=== PATIENT | female | born 1960 | race Caucasian/White ===

== ENCOUNTER → 2017-01-26 | Outpatient (CLI) | payer BC ==
--- NOTE | 2017-01-31 08:25 | MM ---
Reason for exam: screening (asymptomatic). Last mammogram was performed 1 year and 1 month ago. Physical Findings: A clinical breast exam by your physician is recommended on an annual basis and results should be correlated with mammographic findings. MG Screening Mammo w CAD Bilateral CC and MLO view(s) were taken. Prior study comparison: January 11, 2016, bilateral MG screening mammo w CAD. January 05, 2015, bilateral MG screening mammo w CAD. October 28, 2013, bilateral digital screening mammo w/CAD. There are scattered fibroglandular densities. No significant changes when compared with prior studies. ASSESSMENT: Negative, BI-RAD 1 RECOMMENDATION: Routine screening mammogram of both breasts in 1 year.
== END | disposition home or self-care (01) ==
LOC: RADMAMWWP 07:45
PROVIDERS: ATTEND Obstetrics & Gynecology
DX: Z12.31 Encounter for screening mammogram for malignant neoplasm of breast (principal)

== ENCOUNTER 2017-04-27 00:41 | Inpatient (IN) | payer BC ==
[2017-04-27] MEDS ORDERED: MORPHINE SULFATE 4 MG/ML SYRINGE IV STA (01:24)
[2017-04-27] MEDS ORDERED: ONDANSETRON 4 MG/2 ML VIAL IVP STA ×2 (01:24→04:16)
[2017-04-27] MEDS ORDERED: SODIUM CHLORIDE 0.9% 500 ML IV ONE ×2 (01:24→15:32)
[2017-04-27] MEDS ORDERED: KETOROLAC 30 MG/ML 1 ML VIAL IVP STA (01:54)
[2017-04-27 02:08] LABS: Basophils # (A) 0.1 k/uL (0-0.2); Basophils % (A) 0 %; CH 29.6; CHCM 34.4; Eosinophils # (A) 0.1 k/uL (0-0.7); Eosinophils % (A) 1 %; HCT 36.8 % (34.0-46.0); HDW 2.77; HGB 12.8 gm/dL (11.4-16.0); Luc % (Auto) 2; Lymphocytes # (A) 1.3 k/uL (1.0-4.8); Lymphocytes % (A) 10 %; MCHC 34.7 g/dL (31.0-37.0); MCV 86.3 fL (80.0-100.0); Mean Platelet Volume 7.3; Monocytes # (A) 0.5 k/uL (0-1.0); Monocytes % (A) 4 %; Neutrophils # (A) 11.3 k/uL (1.3-7.7); Neutrophils % (A) 84 %; RBC 4.26 m/uL (3.80-5.40); RDW 15.1 % (11.5-15.5); WBC 13.5 k/uL (3.8-10.6); WBC (Perox) 13.65
[2017-04-27 02:14] LABS: Appearance,Urine Cloudy (Clear); Bacteria,Urine Rare /hpf; Bilirubin,Urine Negative (Negative); Glucose,Urine (UA) Negative (Negative); Ketones,Urine Negative (Negative); Leukocyte Esterase,Urine Large (Negative); Mucus,Urine Few /hpf; Nitrite,Urine Negative (Negative); PH, Urine 5.5 (5.0-8.0); Particle Count 8922; Protein,Urine Trace (Negative); RBC,Urine 2 /hpf (0-5); Specific Gravity,Urine 1.023 (1.001-1.035); Squamous Epithelial Cell,Urine 5 /hpf (0-4); UA Billing (MACRO vs. MICRO) MICRO; Urobilinogen,Urine <2.0 mg/dL (<2.0); WBC,Urine 18 /hpf (0-5)
--- NOTE | 2017-04-27 02:15 | ED ---
General Adult HPI - General Chief complaint: Urogenital Stated complaint: Pelvic Pain Time Seen by Provider: 04/27/17 01:08 Source: patient Mode of arrival: ambulatory Limitations: no limitations - History of Present Illness Initial comments: 56-year-old female patient presented to emergency department today for complaints of left lower quadrant abdominal pain. Patient states this has been on for the last 2 days. Patient states the pain is sharp. She states it does not radiate to her back. Patient states that she has had some nausea related to the pain however has not vomited. She denies any fever, chills, chest pain, shortness of breath, constipation, diarrhea, dark stools, bloody stools, black stools, hematuria, dysuria, urinary frequency or urinary urgency. Patient states her last menstrual period was 2 weeks ago. Patient states that her periods have been irregular. States she does have a history of ovarian cyst however is unsure which side it was on. 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 - Related Data Home Medications Medication Instructions Recorded Confirmed Aspirin 81 mg PO DAILY 05/02/16 04/27/17 Atenolol [Atenolol] 50 mg PO DAILY 05/02/16 04/27/17 Lisinopril/Hydrochlorothiazide 1 tab PO BID 05/02/16 04/27/17 [Lisinopril-Hctz 20-12.5 mg Tab] Multivitamin/Iron/Folic Acid 1 each PO DAILY 05/02/16 04/27/17 [Centrum Complete Multivit Tab] Allergies Allergy/AdvReac Type Severity Reaction Status Date / Time No Known Allergies Allergy Verified 04/27/17 00:47 Review of Systems ROS Statement: Those systems with pertinent positive or pertinent negative responses have been documented in the HPI. ROS Other: All systems not noted in ROS Statement are negative. Past Medical History Past Medical History: Hypertension, Sleep Apnea/CPAP/BIPAP Additional Past Medical History / Comment(s): USES CPAP. History of Any Multi-Drug Resistant Organisms: None Reported Past Surgical History: Cholecystectomy Additional Past Surgical History / Comment(s): CONIZATION. Past Anesthesia/Blood Transfusion Reactions: No Reported Reaction Past Psychological History: No Psychological Hx Reported Smoking Status: Never smoker Past Alcohol Use History: Occasional Past Drug Use History: None Reported - Past Family History Mother Family Medical History: No Reported History General Exam Limitations: no limitations General appearance: alert, in no apparent distress Head exam: Present: atraumatic, normocephalic, normal inspection Eye exam: Present: normal appearance, PERRL, EOMI. Absent: scleral icterus, conjunctival injection, periorbital swelling ENT exam: Present: normal exam, normal oropharynx, mucous membranes moist Neck exam: Present: normal inspection. Absent: tenderness, meningismus, lymphadenopathy Respiratory exam: Present: normal lung sounds bilaterally. Absent: respiratory distress, wheezes, rales, rhonchi, stridor Cardiovascular Exam: Present: regular rate, normal rhythm, normal heart sounds. Absent: systolic murmur, diastolic murmur, rubs, gallop, clicks GI/Abdominal exam: Present: soft, tenderness (Left lower quadrant), normal bowel sounds. Absent: distended, guarding, rebound, rigid Extremities exam: Present: normal inspection, full ROM, normal capillary refill. Absent: tenderness, pedal edema, joint swelling, calf tenderness Back exam: Present: normal inspection Neurological exam: Present: alert, oriented X3, CN II-XII intact Psychiatric exam: Present: normal affect, normal mood Skin exam: Present: warm, dry, intact, normal color. Absent: rash Course Vital Signs 04/27/17 04/27/17 04/27/17 00:44 03:00 05:17 Temperature 99.0 F 98.7 F 100.2 F H Pulse Rate 103 H 70 103 H Respiratory 18 18 18 Rate Blood Pressure 183/81 144/66 107/52 O2 Sat by Pulse 95 98 94 L Oximetry Medical Decision Making - Medical Decision Making 56-year-old female patient presented for complaints of left sided pelvic pain. Labs were reviewed and did show an elevated white blood cell count at 13.5. Also showed a urinary tract infection, urine culture has been obtained. Transvaginal ultrasound was obtained and did show a left adnexal mass measuring about 7.8 x 5.9 x 7.1 cm. It impression by shows neoplastic etiology should be considered. Cannot rule out left adnexal torsion-detorsion phenomenon. CT of the abdomen and pelvis was obtained to rule out diverticulitis as cause for her left lower quadrant abdominal pain it did show a 3 cm exophytic lesion in the anterior right kidney measuring 60 3HU, with questionable punctate calcification inferiorly, fever salt lesion such as renal cell carcinoma rather than a hemorrhagic or proteinaceous cyst. Appendix is also mildly dilated to 8 mm in maximum diameter surrounded by a small amount of mesenteric stranding also seen in the left hemipelvis, may suggest early appendicitis. Also is 5.4 x 4.5 cmleft adnexal cystic lesion. Differential includes complex hemorrhagic ovarian cyst, tubo-ovarian abscess, and cystic neoplasm of the left ovary. Patient did receive IV fluids, pain medication and nausea medication. She was reevaluated, states she is feeling better however she reports now the pain is radiating across her entire lower abdomen. She is tender over the left lower quadrant and right lower quadrant, but states that the pain is continues to be worse on the left. Patient also developed a temperature of 100.2 while here. Given Tylenol for this. Patient will be admitted to the hospital with consults for gynecology for ovarian mass, urology for renal mass, and Gen. surgery for possible appendicitis. Dr. Soto my attending did speak to Dr. Porter who will see and evaluate the patient today. Patient started on IV Rocephin and Flagyl. - Lab Data Result diagrams: 04/27/17 01:57 04/27/17 01:57 Lab Results 04/27/17 04/27/17 04/27/17 Range/Units 01:57 01:57 01:57 WBC 13.5 H (3.8-10.6) k/uL RBC 4.26 (3.80-5.40) m/uL Hgb 12.8 (11.4-16.0) gm/dL Hct 36.8 (34.0-46.0) % MCV 86.3 (80.0-100.0) fL MCH 30.0 (25.0-35.0) pg MCHC 34.7 (31.0-37.0) g/dL RDW 15.1 (11.5-15.5) % Plt Count 205 (150-450) k/uL Neutrophils % 84 % Lymphocytes % 10 % Monocytes % 4 % Eosinophils % 1 % Basophils % 0 % Neutrophils # 11.3 H (1.3-7.7) k/uL Lymphocytes # 1.3 (1.0-4.8) k/uL Monocytes # 0.5 (0-1.0) k/uL Eosinophils # 0.1 (0-0.7) k/uL Basophils # 0.1 (0-0.2) k/uL Sodium 135 L (137-145) mmol/L Potassium 3.9 (3.5-5.1) mmol/L Chloride 101 (98-107) mmol/L Carbon Dioxide 23 (22-30) mmol/L Anion Gap 11 mmol/L BUN 17 (7-17) mg/dL Creatinine 0.80 (0.52-1.04) mg/dL Est GFR (MDRD) Af Amer >60 (>60 ml/min/1.73 sqM) Est GFR (MDRD) Non-Af >60 (>60 ml/min/1.73 sqM) Glucose 160 H (74-99) mg/dL Calcium 9.7 (8.4-10.2) mg/dL Total Bilirubin 1.0 (0.2-1.3) mg/dL AST 25 (14-36) U/L ALT 37 (9-52) U/L Alkaline Phosphatase 86 (38-126) U/L Total Protein 7.3 (6.3-8.2) g/dL Albumin 4.0 (3.5-5.0) g/dL Amylase 44 (30-110) U/L Lipase 100 (23-300) U/L Urine Color Yellow Urine Appearance Cloudy H (Clear) Urine pH 5.5 (5.0-8.0) Ur Specific Whitefish 1.023 (1.001-1.035) Urine Protein Trace H (Negative) Urine Glucose (UA) Negative (Negative) Urine Ketones Negative (Negative) Urine Blood Trace H (Negative) Urine Nitrite Negative (Negative) Urine Bilirubin Negative (Negative) Urine Urobilinogen <2.0 (<2.0) mg/dL Ur Leukocyte Esterase Large H (Negative) Urine RBC 2 (0-5) /hpf Urine WBC 18 H (0-5) /hpf Ur Squamous Epith Cells 5 H (0-4) /hpf Urine Bacteria Rare H (None) /hpf Urine Mucus Few H (None) /hpf - Radiology Data Radiology results: report reviewed, image reviewed Transvaginal ultrasound did show that the uterus measures about 10.7 x 6.5 x 6.3 cm. Endometrial stripe is about 1.57 cm in thickness. No myometrial mass. Right ovary not demonstrated left ovary. Left adnexal mass measures about 7.8 x 5.9 x 7.1 cm. Left ovary is questionably visualized. Normal blood flow. Free fluid not present. Bladder is an empty bladder which cannot be evaluated with this pro. Impression by Dr. Carpio states left adnexal mass measures about 7.8 x 5.9 x 7.1 cm. Neoplastic etiology should be considered. Cannot rule out left adnexal torsion-detorsion phenomenon. CT of the abdomen and pelvis was obtained and did show a 3 cm exophytic lesion in the anterior right kidney measuring 60 3HU, with questionable punctate calcification inferiorly, favor cell lesion such as renal cell carcinoma rather than a hemorrhagic or proteinaceous cyst. Appendix is mildly dilated to 8 mm in maximum diameter surrounded by small amount of mesenteric stranding also seen in the left hemipelvis, may suggest early appendicitis. Please correlate with clinical laboratory findings. 5.4 x 4.5 cm left adnexal cystic lesion. Differential includes complex hemorrhagic ovarian cyst, tubo-ovarian abscess, and cystic neoplasm of the left ovary. Impression is by Dr. Carpio. Disposition Clinical Impression: Appendicitis, Ovarian mass, Renal mass Disposition: ADMITTED IP TO THIS [facility] Condition: Good Referrals: Lizbeth Goldstein MD [Primary Care Provider] - 1-2 days Decision to Admit Reason: Admit from EC Decision Date: 04/27/17 Decision Time: 06:02
[2017-04-27 02:41] LABS: ALT 37 U/L (9-52); AST 25 U/L (14-36); Alkaline Phosphatase 86 U/L (38-126); Amylase 44 U/L (30-110); Anion Gap 11 mmol/L; Blood Urea Nitrogen 17 mg/dL (7-17); Calcium 9.7 mg/dL (8.4-10.2); Carbon Dioxide 23 mmol/L (22-30); Chloride 101 mmol/L (98-107); Glucose 160 mg/dL (74-99); Non-African American GFR(MDRD) >60 (>60 ml/min/1.73 sqM); Potassium 3.9 mmol/L (3.5-5.1); Sodium 135 mmol/L (137-145); Total Protein 7.3 g/dL (6.3-8.2)
--- NOTE | 2017-04-27 03:02 | US ---
EXAM: US Pelvis, Transvaginal CLINICAL HISTORY: Reason: Pain TECHNIQUE: Real-time transvaginal pelvic ultrasound (complete) with image documentation. COMPARISON: No relevant prior studies available. FINDINGS: Uterus/cervix: Uterus measures about 10.7 x 6.5 x 6.3 cm Endometrial Stripe is about 1.57 cm in thickness No myometrial mass. Right ovary: Not demonstrated Left ovary: Left adnexal mass measures about 7.8 x 5.9 x 7.1 cm. Left ovary is questionably visualized. Normal blood flow. Free fluid: No free fluid. Bladder: Empty bladder which cannot be evaluated with this probe. IMPRESSION: No active adnexal torsion Left adnexal mass measures about 7.8 x 5.9 x 7.1 cm. Neoplastic etiology should be considered. Cannot rule out left adnexal torsion - detorsion phenomenon.
[2017-04-27] MEDS ORDERED: RX INFO: IV CONTRAST WAS GIVEN 1 EACH MISC MISCELLANE PRN (04:10)
[2017-04-27] MEDS ORDERED: HYDROmorphone 1 MG/ML 1 ML SYRINGE IVP STA (04:16)
[2017-04-27] MEDS ORDERED: ACETAMINOPHEN TAB 325 MG TAB PO STA (05:17)
--- NOTE | 2017-04-27 05:32 | CT ---
EXAM: CT Abdomen and Pelvis With Intravenous Contrast CLINICAL HISTORY: Reason: Pain TECHNIQUE: Axial computed tomography images of the abdomen and pelvis with intravenous contrast. CTDI is 71.4 mGy and DLP is 3039.1 mGy-cm. This CT exam was performed using one or more of the following dose reduction techniques: automated exposure control, adjustment of the mA and/or kV according to patient size, and/or use of iterative reconstruction technique. Coronal and sagittal reconstructions are performed. COMPARISON: Pelvic ultrasound from today. FINDINGS: Lower thorax: No acute findings. ABDOMEN: Liver: Mildly enlarged fatty liver. Gallbladder and bile ducts: Cholecystectomy clips. No ductal dilation. Pancreas: Unremarkable. No mass. No ductal dilation. Spleen: Unremarkable. No splenomegaly. Adrenals: Unremarkable. No mass. Kidneys and ureters: 3 cm exophytic lesion in the anterior right kidney measures 63HU, with questionable punctate calcification inferiorly, best seen on series 3 image 48, favor solid lesion such as renal cell carcinoma rather than a hemorrhagic or proteinaceous cyst. No hydronephrosis. Stomach and bowel: Mild colonic diverticulosis. No obstruction. No mucosal thickening. Appendix: Appendix is mildly dilated to 8 mm in maximum diameter surrounded by small amount of mesenteric stranding also seen in left hemipelvis, may suggest early appendicitis. PELVIS: Bladder: Unremarkable. No mass. Reproductive: 5.4 x 4.5 cm left adnexal cystic lesion. Differential includes ovarian cyst, tubo-ovarian abscess, cystic neoplasm of the left ovary. ABDOMEN and PELVIS: Intraperitoneal space: Unremarkable. No free air. No significant fluid collection. Bones/joints: Mild degenerative changes in the visualized osseous structures. No acute fracture. No dislocation. Soft tissues: Unremarkable. Vasculature: Unremarkable. No abdominal aortic aneurysm. Lymph nodes: Unremarkable. No enlarged lymph nodes. IMPRESSION: 1. 3 cm exophytic lesion in the anterior right kidney measures 63HU, with questionable punctate calcification inferiorly, favor solid lesion such as renal cell carcinoma rather than a hemorrhagic or proteinaceous cyst. 2. Appendix is mildly dilated to 8 mm in maximum diameter surrounded by small amount of mesenteric stranding also seen in left hemipelvis, may suggest early appendicitis. Please correlate with clinical and laboratory findings. 3. 5.4 x 4.5 cm left adnexal cystic lesion. Differential includes complex/hemorrhagic ovarian cyst, tubo-ovarian abscess, and cystic neoplasm of the left ovary. [employer] 04/27/17 05:39 Verify Receipt Verified receipt with KARTIK Ma in the ER for ROBBY KLINE @ 0231
[2017-04-27] MEDS ORDERED: NALOXONE 0.4 MG/ML 1 ML VIAL IV PRN (05:48)
[2017-04-27] MEDS ORDERED: ACETAMINOPHEN TAB 325 MG TAB PO PRN (05:48)
[2017-04-27] MEDS ORDERED: ONDANSETRON 4 MG/2 ML VIAL IVP PRN (05:48)
[2017-04-27] MEDS ORDERED: metroNIDAZOLE-NS PMX 500 MG in SALINE 1 100ML.BAG IVPB STA (05:55)
[2017-04-27] MEDS: ATENOLOL 50 MG TAB PO SCH (08:00)
[2017-04-27] MEDS: SODIUM CHLORIDE 0.9% 1,000 ML IV SCH (08:00)
[2017-04-27] MEDS: HYDROmorphone 1 MG/ML 1 ML SYRINGE IV PRN ×3 (08:01→23:11)
--- NOTE | 2017-04-27 09:33 | P.GSCN ---
History of Present Illness Consult date: 04/27/17 Reason for Consult: Abdominal pain, possible appendicitis History of present illness: The patient is a 56-year-old female who began having some left lower quadrant pain Monday. It gradually became more pronounced yesterday. She came into the emergency department and had a workup. The appendix was prominent at 8 mm. The pain was initially in the left lower quadrant, it then radiated over to the right lower quadrant. This morning its in both upper quadrants. She's not had anything like this in the past. Some slight nausea yesterday which has resolved. No vomiting. Denies fevers or chills. Denies dysuria or blood in the urine. No vaginal discharge. She does have a history of a left ovarian cyst and she sees Dr. Arcos in the office for this. She has ultrasounds performed there. No blood in the stool or dark tarry stool. She did have a recent colonoscopy by Dr. Gonzalez. Review of Systems All systems: negative Past Medical History Past Medical History: Hypertension, Sleep Apnea/CPAP/BIPAP Additional Past Medical History / Comment(s): OVARIAN CYST-LATERALITY UNKNOWN, lmp 2 WEEKS AGO-IRREGULAR, NO LONGER USES CPAP, DIVERTICULAR DX. History of Any Multi-Drug Resistant Organisms: None Reported Past Surgical History: Cholecystectomy Additional Past Surgical History / Comment(s): CERVICAL CONIZATION, COLONOSCOPY , HYSTEROSCOPY, D&C. Past Anesthesia/Blood Transfusion Reactions: No Reported Reaction Smoking Status: Never smoker - Past Family History Mother Family Medical History: COPD Additional Family Medical History / Comment(s): MOTHER OF COPD AT THE AGE OF 74YRS. SHE WAS A SMOKER. Father Additional Family Medical History / Comment(s): FATHER HAD A RUPTURED ESOPHAGUS AND OF LEGIONAIRRE'S DX WHILE HOSPITALIZED FOR THE ESOPHAGUS. Medications and Allergies Home Medications Medication Instructions Recorded Confirmed Type Aspirin 81 mg PO DAILY 05/02/16 04/27/17 History Atenolol [Atenolol] 50 mg PO DAILY 05/02/16 04/27/17 History Lisinopril/Hydrochlorothiazide 1 tab PO BID 05/02/16 04/27/17 History [Lisinopril-Hctz 20-12.5 mg Tab] Multivitamin/Iron/Folic Acid 1 tab PO DAILY 05/02/16 04/27/17 History [Centrum Complete Multivit Tab] Allergies Allergy/AdvReac Type Severity Reaction Status Date / Time No Known Allergies Allergy Verified 04/27/17 07:48 Surgical - Exam Osteopathic Statement: *. No significant issues noted on an osteopathic structural exam other than those noted in the History and Physical/Consult. Vital Signs Temp Pulse Resp BP Pulse Ox 99.0 F 103 H 18 183/81 95 04/27/17 00:44 04/27/17 00:44 04/27/17 00:44 04/27/17 00:44 04/27/17 00:44 - General well developed, well nourished, no distress - Eyes normal ocular movement - ENT normal mucosa - Neck trachea midline - Respiratory normal respiratory effort, clear to auscultation - Cardiovascular Rhythm: regular - Abdomen Abdomen: soft, tender (Minimal nonspecific tenderness in both upper quadrants), bowel sounds, no guarding, no rigid, no rebound, no distended - Psychiatric oriented to time, oriented to person, oriented to place, speech is normal, memory intact Results - Labs 04/27/17 01:57 04/27/17 01:57 Abnormal Lab Results - Last 24 Hours (Table) 04/27/17 04/27/17 04/27/17 Range/Units 01:57 01:57 01:57 WBC 13.5 H (3.8-10.6) k/uL Neutrophils # 11.3 H (1.3-7.7) k/uL Sodium 135 L (137-145) mmol/L Glucose 160 H (74-99) mg/dL Urine Appearance Cloudy H (Clear) Urine Protein Trace H (Negative) Urine Blood Trace H (Negative) Ur Leukocyte Esterase Large H (Negative) Urine WBC 18 H (0-5) /hpf Ur Squamous Epith Cells 5 H (0-4) /hpf Urine Bacteria Rare H (None) /hpf Urine Mucus Few H (None) /hpf Diabetes panel 04/27/17 Range/Units 01:57 Sodium 135 L (137-145) mmol/L Potassium 3.9 (3.5-5.1) mmol/L Chloride 101 (98-107) mmol/L Carbon Dioxide 23 (22-30) mmol/L BUN 17 (7-17) mg/dL Creatinine 0.80 (0.52-1.04) mg/dL Glucose 160 H (74-99) mg/dL Calcium 9.7 (8.4-10.2) mg/dL AST 25 (14-36) U/L ALT 37 (9-52) U/L Alkaline Phosphatase 86 (38-126) U/L Total Protein 7.3 (6.3-8.2) g/dL Albumin 4.0 (3.5-5.0) g/dL Calcium panel 04/27/17 Range/Units 01:57 Calcium 9.7 (8.4-10.2) mg/dL Albumin 4.0 (3.5-5.0) g/dL Pituitary panel 04/27/17 Range/Units 01:57 Sodium 135 L (137-145) mmol/L Potassium 3.9 (3.5-5.1) mmol/L Chloride 101 (98-107) mmol/L Carbon Dioxide 23 (22-30) mmol/L BUN 17 (7-17) mg/dL Creatinine 0.80 (0.52-1.04) mg/dL Glucose 160 H (74-99) mg/dL Calcium 9.7 (8.4-10.2) mg/dL Adrenal panel 04/27/17 Range/Units 01:57 Sodium 135 L (137-145) mmol/L Potassium 3.9 (3.5-5.1) mmol/L Chloride 101 (98-107) mmol/L Carbon Dioxide 23 (22-30) mmol/L BUN 17 (7-17) mg/dL Creatinine 0.80 (0.52-1.04) mg/dL Glucose 160 H (74-99) mg/dL Calcium 9.7 (8.4-10.2) mg/dL Total Bilirubin 1.0 (0.2-1.3) mg/dL AST 25 (14-36) U/L ALT 37 (9-52) U/L Alkaline Phosphatase 86 (38-126) U/L Total Protein 7.3 (6.3-8.2) g/dL Albumin 4.0 (3.5-5.0) g/dL - Imaging CT scan - abdomen: report reviewed, image reviewed Assessment and Plan (1) Abdominal pain Status: Acute (2) Ovarian mass Status: Acute (3) Renal mass Status: Acute Plan: The appendix is prominent on her CT scan. She is not particularly tender today. At this point will await gynecologic evaluation and urology consult. Urine culture was sent. We'll repeat labs and do serial exams. Further recommendations to follow.
[2017-04-27 12:32] LABS: CHCM 32.6; HCT 36.9 % (34.0-46.0); HDW 2.84; HGB 12.1 gm/dL (11.4-16.0); MCH 29.5 pg (25.0-35.0); MCHC 32.9 g/dL (31.0-37.0); MCV 89.6 fL (80.0-100.0); Mean Platelet Volume 6.9; RBC 4.12 m/uL (3.80-5.40); RDW 15.3 % (11.5-15.5); WBC 4.4 k/uL (3.8-10.6)
--- NOTE | 2017-04-27 14:25 | P.HPIM ---
History of Present Illness H&P Date: 04/27/17 Chief Complaint: left sided abdominal pain 56 yr old with history of ovarian cyst, followed by Dr yang comes into the hospital with complaints of left sided abdominal pain, times 3. Pt was also noted to have associated fevers, chills however denies having urinary urgency, frequency, change in bowel habits. Pt underwent a ct abdomen, multiple findings including fat stranding on the right lower abdomen, an ovarian cyst and a exophytic renal mass Pt denies having any recent weight loss. at the time of my eval, pt continues to have pain in her left flank, no additional complaints reported Review of Systems All systems: negative (noted in hpi) Past Medical History Past Medical History: Hypertension, Sleep Apnea/CPAP/BIPAP Additional Past Medical History / Comment(s): OVARIAN CYST-LATERALITY UNKNOWN, lmp 2 WEEKS AGO-IRREGULAR, NO LONGER USES CPAP, DIVERTICULAR DX. History of Any Multi-Drug Resistant Organisms: None Reported Past Surgical History: Cholecystectomy Additional Past Surgical History / Comment(s): CERVICAL CONIZATION, COLONOSCOPY , HYSTEROSCOPY, D&C. Past Anesthesia/Blood Transfusion Reactions: No Reported Reaction Smoking Status: Never smoker - Past Family History Mother Family Medical History: COPD Additional Family Medical History / Comment(s): MOTHER OF COPD AT THE AGE OF 74YRS. SHE WAS A SMOKER. Father Additional Family Medical History / Comment(s): FATHER HAD A RUPTURED ESOPHAGUS AND OF LEGIONAIRRE'S DX WHILE HOSPITALIZED FOR THE ESOPHAGUS. Medications and Allergies Home Medications Medication Instructions Recorded Confirmed Type Aspirin 81 mg PO DAILY 05/02/16 04/27/17 History Atenolol [Atenolol] 50 mg PO DAILY 05/02/16 04/27/17 History Lisinopril/Hydrochlorothiazide 1 tab PO BID 05/02/16 04/27/17 History [Lisinopril-Hctz 20-12.5 mg Tab] Multivitamin/Iron/Folic Acid 1 tab PO DAILY 05/02/16 04/27/17 History [Centrum Complete Multivit Tab] Allergies Allergy/AdvReac Type Severity Reaction Status Date / Time No Known Allergies Allergy Verified 04/27/17 07:48 Physical Exam Vitals: Vital Signs Temp Pulse Pulse Resp BP BP Pulse Ox 04/27/17 07:00 99.3 F 100 18 117/61 94 L 04/27/17 06:48 99.7 F H 92 18 114/55 96 04/27/17 06:23 99.7 F H 92 18 114/55 96 04/27/17 05:17 100.2 F H 103 H 18 107/52 94 L 04/27/17 03:00 98.7 F 70 18 144/66 98 04/27/17 00:44 99.0 F 103 H 18 183/81 95 Intake and Output 04/26/17 04/27/17 04/27/17 22:59 06:59 14:59 Other: # Voids 2 Weight 113.398 kg - Constitutional General appearance: no acute distress - EENT Eyes: EOMI, PERRLA - Respiratory Respiratory: bilateral: CTA, negative: dullness, rales, rhonchi - Cardiovascular Rhythm: regular Heart sounds: normal: S1, S2 Abnormal Heart Sounds: no systolic murmur - Gastrointestinal General gastrointestinal: no organomegaly, soft, tenderness (left flank, no rebound tenderness) - Neurologic Neurologic: CNII-XII intact Results CBC & Chem 7: 04/27/17 11:40 04/27/17 01:57 Labs: Abnormal Lab Results - Last 24 Hours (Table) 04/27/17 04/27/17 04/27/17 Range/Units 01:57 01:57 01:57 WBC 13.5 H (3.8-10.6) k/uL Neutrophils # 11.3 H (1.3-7.7) k/uL Sodium 135 L (137-145) mmol/L Glucose 160 H (74-99) mg/dL Urine Appearance Cloudy H (Clear) Urine Protein Trace H (Negative) Urine Blood Trace H (Negative) Ur Leukocyte Esterase Large H (Negative) Urine WBC 18 H (0-5) /hpf Ur Squamous Epith Cells 5 H (0-4) /hpf Urine Bacteria Rare H (None) /hpf Urine Mucus Few H (None) /hpf Microbiology - Last 24 Hours (Table) 04/27/17 01:57 Urine Culture - Preliminary Urine,Clean Catch Thrombosis Risk Factor Assmnt - Choose All That Apply Any of the Below Risk Factors Present?: Yes Each Factor Represents 1 point: Age 41-60 years, Obesity (BMI >25) Other Risk Factors: No Other congenital or acquired thrombophilia - If yes, enter type in comment: No Thrombosis Risk Factor Assessment Total Risk Factor Score: 2 Thrombosis Risk Factor Assessment Level: Low Risk Assessment and Plan Plan: Left sided abdominal pain, sec to ovarian cyst, pt had a history of it, need to consider increase in size right sided renal exophytic mass DANILO HTN Plan pt received one dose of abx hold off on abx at this time 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 pain control surgery recs noted
--- NOTE | 2017-04-27 16:23 | P.PN ---
Progress Note - Text Patient is reevaluated. SHe continues to have pain in the epigastrium and left lower quadrant. No nausea. She is hungry. She wonders if the pain is muscular. 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 Abdomen: Soft, bowel sounds, epigastric and left lower quadrant tenderness. No rebound. mild guarding. Assessment: Abdominal pain, doubt acute appendicitis Plan: Surgically stable to advance her diet if it's okay from gynecology standpoint. I'll reevaluate her tomorrow. Currently nonsurgical.
--- NOTE | 2017-04-27 16:30 | P.GSCN ---
History of Present Illness Consult date: 04/27/17 Reason for Consult: Right renal mass History of present illness: The patient is a 56-year-old female first developed discomfort in the left lower quadrant on 04/24. The pain worsened the following day and since that time has spread to the mid and upper abdomen. The patient denies any back pain. The pain is not associated with voiding or bowel movements. He has had some nausea but believes this was related to the degree of pain. She says the pain is worse if she tries to sit up or takes a deep breath. She presented to the emergency room yesterday evening and was noted to have a white blood count of 13,500. WBC was 4,400 this morning. Computed tomography scan of the abdomen and pelvis with IV contrast showed some slight dilation of the appendix to 8 mm in diameter. Patient was also noted to have a 5.4 x 4.5 cm left adnexal cystic lesion. The patient says that she was first noted to have a left ovarian cyst [address] Arcos[address] She says she was evaluated at [facility] and further observation was recommended. The computed tomography scan performed today identified a 3 cm mass arising from the anterior lower pole of the right kidney which measured 63 Hounsfield units and was suspicious for a small renal cell carcinoma. The patient has no previous imaging of her kidneys for comparison. She has no history of gross hematuria and denies any pain in the right lower quadrant or right abdomen. Review of Systems - Constitutional Denies chills, Denies fever - Cardiovascular Reports palpitations, Denies chest pain, Denies dyspnea on exertion - Respiratory Reports pain on inspiration, Denies cough - Gastrointestinal Reports as per HPI - Genitourinary Genitourinary: Reports as per HPI Past Medical History Past Medical History: Hypertension, Sleep Apnea/CPAP/BIPAP Additional Past Medical History / Comment(s): OVARIAN CYST-LATERALITY UNKNOWN, lmp 2 WEEKS AGO-IRREGULAR, NO LONGER USES CPAP, DIVERTICULAR DX. History of Any Multi-Drug Resistant Organisms: None Reported Past Surgical History: Cholecystectomy Additional Past Surgical History / Comment(s): CERVICAL CONIZATION, COLONOSCOPY , HYSTEROSCOPY, D&C. Past Anesthesia/Blood Transfusion Reactions: No Reported Reaction Smoking Status: Never smoker - Past Family History Mother Family Medical History: COPD Additional Family Medical History / Comment(s): MOTHER OF COPD AT THE AGE OF 74YRS. SHE WAS A SMOKER. Father Additional Family Medical History / Comment(s): FATHER HAD A RUPTURED ESOPHAGUS AND OF LEGIONAIRRE'S DX WHILE HOSPITALIZED FOR THE ESOPHAGUS. Medications and Allergies Home Medications Medication Instructions Recorded Confirmed Type Aspirin 81 mg PO DAILY 05/02/16 04/27/17 History Atenolol [Atenolol] 50 mg PO DAILY 05/02/16 04/27/17 History Lisinopril/Hydrochlorothiazide 1 tab PO BID 05/02/16 04/27/17 History [Lisinopril-Hctz 20-12.5 mg Tab] Multivitamin/Iron/Folic Acid 1 tab PO DAILY 05/02/16 04/27/17 History [Centrum Complete Multivit Tab] Allergies Allergy/AdvReac Type Severity Reaction Status Date / Time No Known Allergies Allergy Verified 04/27/17 07:48 Surgical - Exam Vital Signs Temp Pulse Resp BP Pulse Ox 99.0 F 103 H 18 183/81 95 04/27/17 00:44 04/27/17 00:44 04/27/17 00:44 04/27/17 00:44 04/27/17 00:44 - General well developed, obese - Neck no masses, no lymphadectomy - Respiratory normal respiratory effort - Abdomen Abdomen: soft, tender, no organomegaly, no masses - Psychiatric memory intact Results - Labs 04/27/17 11:40 04/27/17 01:57 Abnormal Lab Results - Last 24 Hours (Table) 04/27/17 04/27/17 04/27/17 Range/Units 01:57 01:57 01:57 WBC 13.5 H (3.8-10.6) k/uL Neutrophils # 11.3 H (1.3-7.7) k/uL Sodium 135 L (137-145) mmol/L Glucose 160 H (74-99) mg/dL Urine Appearance Cloudy H (Clear) Urine Protein Trace H (Negative) Urine Blood Trace H (Negative) Ur Leukocyte Esterase Large H (Negative) Urine WBC 18 H (0-5) /hpf Ur Squamous Epith Cells 5 H (0-4) /hpf Urine Bacteria Rare H (None) /hpf Urine Mucus Few H (None) /hpf Microbiology - Last 24 Hours (Table) 04/27/17 01:57 Urine Culture - Preliminary Urine,Clean Catch Diabetes panel 04/27/17 Range/Units 01:57 Sodium 135 L (137-145) mmol/L Potassium 3.9 (3.5-5.1) mmol/L Chloride 101 (98-107) mmol/L Carbon Dioxide 23 (22-30) mmol/L BUN 17 (7-17) mg/dL Creatinine 0.80 (0.52-1.04) mg/dL Glucose 160 H (74-99) mg/dL Calcium 9.7 (8.4-10.2) mg/dL AST 25 (14-36) U/L ALT 37 (9-52) U/L Alkaline Phosphatase 86 (38-126) U/L Total Protein 7.3 (6.3-8.2) g/dL Albumin 4.0 (3.5-5.0) g/dL Calcium panel 04/27/17 Range/Units 01:57 Calcium 9.7 (8.4-10.2) mg/dL Albumin 4.0 (3.5-5.0) g/dL Pituitary panel 04/27/17 Range/Units 01:57 Sodium 135 L (137-145) mmol/L Potassium 3.9 (3.5-5.1) mmol/L Chloride 101 (98-107) mmol/L Carbon Dioxide 23 (22-30) mmol/L BUN 17 (7-17) mg/dL Creatinine 0.80 (0.52-1.04) mg/dL Glucose 160 H (74-99) mg/dL Calcium 9.7 (8.4-10.2) mg/dL Adrenal panel 04/27/17 Range/Units 01:57 Sodium 135 L (137-145) mmol/L Potassium 3.9 (3.5-5.1) mmol/L Chloride 101 (98-107) mmol/L Carbon Dioxide 23 (22-30) mmol/L BUN 17 (7-17) mg/dL Creatinine 0.80 (0.52-1.04) mg/dL Glucose 160 H (74-99) mg/dL Calcium 9.7 (8.4-10.2) mg/dL Total Bilirubin 1.0 (0.2-1.3) mg/dL AST 25 (14-36) U/L ALT 37 (9-52) U/L Alkaline Phosphatase 86 (38-126) U/L Total Protein 7.3 (6.3-8.2) g/dL Albumin 4.0 (3.5-5.0) g/dL Assessment and Plan (1) Renal mass, right Narrative/Plan: I personally reviewed the patient's computed tomography scan of the abdomen and pelvis. She appears to have a partially enhancing 3 cm mass arising from the anterior lower pole of the right kidney which is suggestive of a small renal cell carcinoma. Unfortunately the computed tomography scan was performed only with IV contrast and so it's unclear whether there was definite enhancement. I do not feel that the mass is related to her abdominal pain as it's more an incidental finding. I discussed possible treatment via partial nephrectomy, cryotherapy, ablation of the tumor, or further observation. In view of the patient's age I believe that treatment should be considered. The patient is obese and I believe that a robotically assisted laparoscopic partial nephrectomy would be the best treatment option. I will make arrangements for her to discuss this further with one of my partners who can perform the procedure. It may be necessary to either perform a renal biopsy to confirm malignancy or for the patient to undergo an MR study of the kidneys prior to making a definite treatment decision but I will defer this for the time being. Status: Acute
--- NOTE | 2017-04-27 17:59 | P.OBCN ---
History of Present Illness Consult date: 04/27/17 Reason for consult: pelvic mass History of present illness: The patient is a 56-year-old woman well known to me for multiple years of routine gynecological evaluation. She presented to the emergency room yesterday with acute lower abdominal pain. She reports that the pain began acutely on Monday and increased over the course of the next 24 hours until presentation. On closer questioning, she reports that she had been doing some very heavy physical labor at her job earlier on Monday which she feels may have precipitated some of the pain. In either case, the pain increased to the point that she felt compelled to present to the emergency room. She did have some nausea which she feels is related to the degree of pain. She denies any nausea or vomiting nor is there any diarrhea or other GI complaints. She had an initial elevated white count which has now normalized. She has been afebrile since the onset of the condition. Approximately 4-5 years ago, she was found with a roughly 4-5 cm complex left ovarian cyst which was evaluated with serial ultrasound as well as OVA-1 testing which was equivocal. As a result, she was sent in consultation to [facility] at [facility] approximately 1-1/2 years ago. They performed ultrasound and reevaluated the patient and ultimately felt that the findings could be managed conservatively. She did undergo repeat ultrasound in our office last year which demonstrated the mass to been somewhat smaller and approximately 4 x 3 cm though still complex in nature. She continues to have irregular menses as she is perimenopausal. She has undergone endometrial biopsies which have demonstrated benign findings. Her description of the pain is such that it was initially fairly acute and in the left lower quadrant, then spread to the right lower quadrant, and now involves general achiness over her entire abdomen. She denies anorexia though she does not feel particularly hungry at this time. She is tolerating liquids well. 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 She has had benign endometrial biopsies on 2 separate occasions. She has had serial ultrasound evaluation in our office though the last evaluation was slightly more than 1 year ago. She has a known complex left ovarian cyst which has been stable and was evaluated by [facility] with a recommendation for conservative management. She carries a history of BRANDEE-3 for which she underwent a cold knife cone of the cervix several years ago which was curative in nature and Paps have been normal since. Review of Systems Review of systems is confined to history of present illness. Past Medical History Past Medical History: Hypertension, Sleep Apnea/CPAP/BIPAP Additional Past Medical History / Comment(s): OVARIAN CYST-LATERALITY UNKNOWN, lmp 2 WEEKS AGO-IRREGULAR, NO LONGER USES CPAP, DIVERTICULAR DX. History of Any Multi-Drug Resistant Organisms: None Reported Past Surgical History: Cholecystectomy Additional Past Surgical History / Comment(s): CERVICAL CONIZATION, COLONOSCOPY , HYSTEROSCOPY, D&C. Past Anesthesia/Blood Transfusion Reactions: No Reported Reaction Smoking Status: Never smoker - Past Family History Mother Family Medical History: COPD Additional Family Medical History / Comment(s): MOTHER OF COPD AT THE AGE OF 74YRS. SHE WAS A SMOKER. Father Additional Family Medical History / Comment(s): FATHER HAD A RUPTURED ESOPHAGUS AND OF LEGIONAIRRE'S DX WHILE HOSPITALIZED FOR THE ESOPHAGUS. Medications and Allergies Home Medications Medication Instructions Recorded Confirmed Type Aspirin 81 mg PO DAILY 05/02/16 04/27/17 History Atenolol [Atenolol] 50 mg PO DAILY 05/02/16 04/27/17 History Lisinopril/Hydrochlorothiazide 1 tab PO BID 05/02/16 04/27/17 History [Lisinopril-Hctz 20-12.5 mg Tab] Multivitamin/Iron/Folic Acid 1 tab PO DAILY 05/02/16 04/27/17 History [Centrum Complete Multivit Tab] Allergies Allergy/AdvReac Type Severity Reaction Status Date / Time No Known Allergies Allergy Verified 04/27/17 07:48 Exam - Vital Signs Vital signs: Vital Signs Temp Pulse Pulse Resp BP BP Pulse Ox 04/27/17 14:45 97.2 F L 86 18 96/42 91 L 04/27/17 07:00 99.3 F 100 18 117/61 94 L 04/27/17 06:48 99.7 F H 92 18 114/55 96 04/27/17 06:23 99.7 F H 92 18 114/55 96 04/27/17 05:17 100.2 F H 103 H 18 107/52 94 L 04/27/17 03:00 98.7 F 70 18 144/66 98 04/27/17 00:44 99.0 F 103 H 18 183/81 95 Intake and Output 04/27/17 04/27/17 04/27/17 06:59 14:59 22:59 Output Total 0 Balance 0 Output: Post Void Residual 0 Other: # Voids 0 0 # Bowel Movements 0 0 Weight 113.398 kg In general, this is a moderately obese white female in no acute distress. Her abdomen is obese, nondistended, has normal active bowel sounds, is soft, with mild diffuse tenderness more prominent in the lower quadrants then upper. There is no guarding or rebound. There are no palpable masses, hepatosplenomegaly, or hernias. Her extremities are without any cyanosis, clubbing, or edema and are nontender to palpation bilaterally. Bimanual pelvic examination demonstrates normal external genitalia and BUS with normal vaginal mucosa and cervix to palpation. There is no cervical motion tenderness. The uterus and adnexa are essentially nonpalpable secondary to the patient's habitus though there is no discomfort created at all from the vaginal examining hand while the abdominal hand does cause some discomfort. Rectovaginal examination is deferred. Results Result Diagrams: 04/27/17 11:40 04/27/17 01:57 Abnormal Lab Results - Last 24 Hours (Table) 04/27/17 04/27/17 04/27/17 Range/Units 01:57 01:57 01:57 WBC 13.5 H (3.8-10.6) k/uL Neutrophils # 11.3 H (1.3-7.7) k/uL Sodium 135 L (137-145) mmol/L Glucose 160 H (74-99) mg/dL Urine Appearance Cloudy H (Clear) Urine Protein Trace H (Negative) Urine Blood Trace H (Negative) Ur Leukocyte Esterase Large H (Negative) Urine WBC 18 H (0-5) /hpf Ur Squamous Epith Cells 5 H (0-4) /hpf Urine Bacteria Rare H (None) /hpf Urine Mucus Few H (None) /hpf Microbiology - Last 24 Hours (Table) 04/27/17 01:57 Urine Culture - Preliminary Urine,Clean Catch Assessment and Plan (1) Ovarian mass Status: Acute (2) Abdominal pain Status: Acute Plan: I suspect that the ovarian mass is an incidental finding to her pain and not a source of it. Given her history of significant physical activity, lifting, and pulling immediately preceding the onset of the pain, I suspect she may have strained abdominal musculature as the source for the pain as it is now diffuse. She has no focal gynecologic signs aside from the findings of ultrasound and computed tomography scan. Surgery does not feel that her appendix is a source for the pain, and I agree. The urologic findings on computed tomography scan are also likely incidental in nature. Given the possibility of an inflammatory muscle strain, I will order Toradol to be given on an as-needed basis. I do not anticipate a surgical intervention at this time. I would continue her on clear liquids today and, assuming she is improved or no worse in the morning, consider advancing her diet. I would like to have her follow up as an outpatient in the office to reexamine the ovarian cyst and compared to previous ultrasounds. I will continue to follow with you.
[2017-04-27] MEDS: KETOROLAC 30 MG/ML 1 ML VIAL IVP PRN (18:41)
[2017-04-28] MEDS: SODIUM CHLORIDE 0.9% 1,000 ML IV SCH ×3 (02:29→21:58)
[2017-04-28] MEDS: KETOROLAC 30 MG/ML 1 ML VIAL IVP PRN (03:24)
[2017-04-28] MEDS: HYDROmorphone 1 MG/ML 1 ML SYRINGE IV PRN (08:17)
[2017-04-28] MEDS: ATENOLOL 50 MG TAB PO SCH (08:17)
[2017-04-28] MEDS ORDERED: HYDROcodone/APAP 7.5-325MG 1 EACH TAB PO PRN (08:52)
[2017-04-28 08:56] LABS: CH 28.7; CHCM 32.7; HCT 34.7 % (34.0-46.0); HDW 2.89; HGB 11.9 gm/dL (11.4-16.0); MCH 30.3 pg (25.0-35.0); MCHC 34.2 g/dL (31.0-37.0); MCV 88.5 fL (80.0-100.0); Mean Platelet Volume 7.7; RBC 3.92 m/uL (3.80-5.40); RDW 15.2 % (11.5-15.5); WBC 14.5 k/uL (3.8-10.6)
--- NOTE | 2017-04-28 11:15 | P.PN ---
Subjective The patient reports no significant interval relief in pain with Toradol. The narcotics to relieve the pain for a period of time. She denies any nausea and vomiting, diarrhea, or any other GI symptoms nor any other localizing symptoms. She reports the pain is worse with movement. She has essentially normal bowel function and is tolerating liquids. Her diet has been advanced by Dr. Porter to a regular diet. Objective - Vital Signs Vital signs: Vital Signs Temp 97.0 F L 04/28/17 07:00 Pulse 103 H 04/28/17 07:00 Resp 18 04/28/17 07:00 BP 134/83 04/28/17 07:00 Pulse Ox 92 L 04/28/17 07:00 Intake & Output 04/27/17 04/28/17 04/28/17 18:59 06:59 18:59 Output Total 0 Balance 0 Output: Post Void Residual 0 Other: # Voids 0 2 # Bowel Movements 0 - Exam Her abdomen is still nondistended with normal active bowel sounds, is soft, with mild diffuse bilateral upper quadrant tenderness which is less prominent in the bilateral lower quadrants today. There is no guarding nor is there any rebound. There are no palpable masses nor hernias. Her extremities without any cyanosis, clubbing, or edema and are nontender to palpation bilaterally. Pelvic examination is deferred. - Labs CBC & Chem 7: 04/28/17 08:08 04/27/17 01:57 Labs: Abnormal Lab Results - Last 24 Hours (Table) 04/28/17 Range/Units 08:08 WBC 14.5 H (3.8-10.6) k/uL Microbiology - Last 24 Hours (Table) 04/27/17 01:57 Urine Culture - Preliminary Urine,Clean Catch Assessment and Plan (1) Ovarian mass Status: Acute (2) Abdominal pain Status: Acute Plan: I highly doubt the ovarian cyst as the etiology of this discomfort. I still suspect a muscular injury as the primary etiology given her report of increased pain with movement or activity and the proximity of the start of the pain to heavy physical labor on her job. She does have a slightly elevated white count but this could be the result of pain. I do not feel repeating any of the imaging studies is warranted at this point and agree with Dr. Roy that the the case is nonsurgical at this time. I discussed the case with primary care and we have opted to proceed with initiating a muscle relaxation agent to see if we can better impact her pain control.
--- NOTE | 2017-04-28 13:09 | P.PN ---
Subjective Principal diagnosis: Abdominal pain The patient is complaining of pain in the upper abdomen. No nausea or vomiting. She is hungry. The pains worse with movement. She thinks it feels muscular. She has improvement with the IV Dilaudid. No real relief with the Toradol. Objective - Vital Signs Vital signs: Vital Signs Temp 97.0 F L 04/28/17 07:00 Pulse 103 H 04/28/17 07:00 Resp 18 04/28/17 07:00 BP 134/83 04/28/17 07:00 Pulse Ox 92 L 04/28/17 07:00 Intake & Output 04/27/17 04/28/17 04/28/17 18:59 06:59 18:59 Output Total 0 Balance 0 Output: Post Void Residual 0 Other: # Voids 0 2 # Bowel Movements 0 - Constitutional General appearance: Present: cooperative, no acute distress - Respiratory Respiratory: bilateral: CTA - Gastrointestinal General gastrointestinal: Present: normal bowel sounds, soft, tenderness ( Bilateral upper quadrants. No tenderness in the lower quadrants. No guarding or rebound) - Labs CBC & Chem 7: 04/28/17 08:08 04/27/17 01:57 Labs: Abnormal Lab Results - Last 24 Hours (Table) 04/28/17 Range/Units 08:08 WBC 14.5 H (3.8-10.6) k/uL Microbiology - Last 24 Hours (Table) 04/27/17 01:57 Urine Culture - Preliminary Urine,Clean Catch Assessment and Plan (1) Abdominal pain Status: Acute (2) Ovarian mass Status: Acute (3) Renal mass Status: Acute Plan: The patient's pain is mainly in the upper abdomen. Her white count did increase again today. I'm unsure of the significance. Currently she is nonsurgical. I draped the lab in the morning. If she develops any increase in pain or white count goes up again then and repeat the CAT scan.
[2017-04-28] MEDS: CYCLOBENZAPRINE 10 MG TAB PO SCH ×2 (13:26→21:58)
[2017-04-28] MEDS ORDERED: RX INFO: IV CONTRAST WAS GIVEN 1 EACH MISC MISCELLANE PRN (15:43)
[2017-04-28 16:24] LABS: Potassium 5.1 mmol/L (3.5-5.1)
--- NOTE | 2017-04-28 17:41 | P.PN ---
Subjective Progress note being dictated for Dr. Lucas. Hospital course: 56 yr old with history of ovarian cyst, followed by Dr yang comes into the hospital with complaints of left sided abdominal pain, times 3. Pt was also noted to have associated fevers, chills however denies having urinary urgency, frequency, change in bowel habits. ct abdomen, multiple findings including fat stranding on the right lower abdomen, an ovarian cyst and a exophytic renal mass. 04/28/2017. Continues to have abdominal pain, under rib cage, mid abdominal pain above the umbilicus and left flank pain. Toradol added to med regime in addition to IV Dilaudid with no improvement in pain controll. States it feels like muscular, as she had been doing some heavy lifting prior to admission. D- dimer ordered, elevated. Worsened renal function, creatinine 1.52. No nausea or vomiting. Increased WBC. Objective - Vital Signs Vital signs: Vital Signs Temp 97.5 F L 04/28/17 14:33 Pulse 95 04/28/17 14:33 Resp 18 04/28/17 14:33 BP 126/61 04/28/17 14:33 Pulse Ox 90 L 04/28/17 14:33 Intake & Output 04/27/17 04/28/17 04/28/17 18:59 06:59 18:59 Output Total 0 Balance 0 Output: Post Void Residual 0 Other: # Voids 0 2 # Bowel Movements 0 - Exam - Constitutional General appearance: no acute distress - EENT Eyes: EOMI, PERRLA - Respiratory Respiratory: bilateral: CTA, negative: dullness, rales, rhonchi - Cardiovascular Rhythm: regular Heart sounds: normal: S1, S2 Abnormal Heart Sounds: no systolic murmur - Gastrointestinal General gastrointestinal: no organomegaly, soft, tenderness as mentioned above to palpation, positive bowel sounds - Neurologic Neurologic: CNII-XII intact - Labs CBC & Chem 7: 04/28/17 08:08 04/28/17 15:52 Labs: Abnormal Lab Results - Last 24 Hours (Table) 04/28/17 04/28/17 Range/Units 08:08 12:54 WBC 14.5 H (3.8-10.6) k/uL D-Dimer 3.59 H (<0.60) mg/L FEU Microbiology - Last 24 Hours (Table) 04/27/17 01:57 Urine Culture - Preliminary Urine,Clean Catch Gram Neg Bacilli Assessment and Plan Plan: Left sided abdominal pain, sec to ovarian cyst, pt had a history of it, need to consider increase in size right sided renal exophytic mass Acute renal failure, DANILO HTN Plan; continue on current medication regime ,monitoring and symptomatic treatment. Evaluated by FINISH INSPECTOR, surgery and urology with recommendations noted. IV fluids increased given worsening renal function. Flexeril added to med regime. VQ scan ordered given elevated d-dimer.Further recommendations to follow. The impression and plan of care has been dictated as directed as a scribe. : I performed a H&P examination of this patient and discussed the same with the dictator. I agree with the dictator's note. Any additional findings/opinions/ etc. will be noted.
--- NOTE | 2017-04-28 19:22 | NM ---
EXAMINATION TYPE: NM pul vent and perfuse DATE OF EXAM: 04/28/2017 COMPARISON: NONE HISTORY: Chest pain TECHNIQUE: Utilizing inhalation of 71.5 mCi Tc 99m DTPA aerosol and intravenous injection of 5.0 mCi of Tc 99m MAA, ventilation and perfusion images are acquired post injection in multiple projections. FINDINGS: There are small matching subsegmental peripheral defects in both lungs. There is no subsegmental type perfusion abnormality. IMPRESSION: There is evidence for some mild airway disease. There is a low probability of pulmonary embolism.
[2017-04-28] MEDS ORDERED: ALPRAZolam 0.25 MG TAB PO PRN (21:28)
[2017-04-29] MEDS ORDERED: LORazepam 2 MG/ML SYRINGE IV PRN (01:43)
[2017-04-29 07:55] LABS: CH 28.8; CHCM 31.9; HCT 33.8 % (34.0-46.0); HDW 2.88; HGB 11.2 gm/dL (11.4-16.0); MCV 90.8 fL (80.0-100.0); RBC 3.73 m/uL (3.80-5.40); RDW 15.3 % (11.5-15.5); WBC 5.7 k/uL (3.8-10.6)
[2017-04-29] MEDS: ATENOLOL 50 MG TAB PO SCH (09:28)
[2017-04-29] MEDS: CYCLOBENZAPRINE 10 MG TAB PO SCH ×3 (09:28→23:10)
[2017-04-29] MEDS: SODIUM CHLORIDE 0.9% 1,000 ML IV SCH ×2 (09:28→19:01)
--- NOTE | 2017-04-29 10:47 | P.PN ---
Subjective The patient reports significant relief in her pain since yesterday. She is otherwise tolerating regular diet and performing all other routine activities of daily living. She has a desire to be discharged. She denies feeling significant shortness of breath but has been found to have a relatively low pulse ox despite nasal cannula oxygen. Objective - Vital Signs Vital signs: Vital Signs Temp 97.3 F L 04/29/17 07:00 Pulse 94 04/29/17 07:00 Resp 22 04/29/17 08:00 BP 118/73 04/29/17 07:00 Pulse Ox 89 L 04/29/17 07:00 Intake & Output 04/28/17 04/29/17 04/29/17 18:59 06:59 18:59 Intake Total 640 236 Balance 640 236 Intake: Oral 640 236 Other: Voiding Method Toilet Toilet # Voids 2 2 - Exam In general, this is a well-developed, moderately obese white female in no acute distress. Her abdomen is nondistended, is soft, with minimal tenderness now confined primarily to the left upper quadrant and consistent with probable abdominal wall muscle strain. There are no palpable masses, hepatomegaly, or hernias. Her extremities are without any cyanosis, clubbing, or edema and are nontender to palpation bilaterally. Pelvic examination is deferred - Labs CBC & Chem 7: 04/29/17 07:06 04/28/17 15:52 Labs: Abnormal Lab Results - Last 24 Hours (Table) 04/28/17 04/28/17 04/29/17 Range/Units 12:54 15:52 07:06 RBC 3.73 L (3.80-5.40) m/uL Hgb 11.2 L (11.4-16.0) gm/dL Hct 33.8 L (34.0-46.0) % Plt Count 134 L (150-450) k/uL D-Dimer 3.59 H (<0.60) mg/L FEU Carbon Dioxide 18 L (22-30) mmol/L BUN 48 H (7-17) mg/dL Creatinine 1.52 H (0.52-1.04) mg/dL Glucose 121 H (74-99) mg/dL Microbiology - Last 24 Hours (Table) 04/27/17 01:57 Urine Culture - Preliminary Urine,Clean Catch Gram Neg Bacilli Assessment and Plan (1) Ovarian mass Status: Acute (2) Abdominal pain Status: Acute Plan: As the patient's pain is now under good control with oral pain medications, I would recommend she be discharged and follow up with me in the office to reevaluate the ovarian cystic structure. The new onset of low oxygen saturation is of unclear etiology. She did have a negative VQ scan performed and perhaps would benefit from an albuterol nebulizer treatment which may loosen her lungs to some extent. She is a nonsmoker though she does have exposure to routine secondhand smoke. Follow-up with the other specialists remains at the discretion of primary care though she certainly does warrant follow-up with urology. I have asked her to return to me in the next several weeks at which time we will combine it with ultrasound to reevaluate the cystic structure in the left pelvis.
[2017-04-29] MEDS ORDERED: IPRATROPIUM-ALBUTEROL 3 ML NEB INHALATION PRN (11:34)
[2017-04-29] MEDS: IPRATROPIUM-ALBUTEROL 3 ML NEB INHALATION SCH ×4 (12:35→21:23)
--- NOTE | 2017-04-29 12:45 | P.PN ---
Subjective Principal diagnosis: Abdominal pain The patient's pain is better today. She was started on a sore laxer yesterday. She is short of breath. A VQ scan was low probability for PE. She's tolerating a diet without nausea or vomiting. She had a bowel movement. Objective - Vital Signs Vital signs: Vital Signs Temp 97.3 F L 04/29/17 07:00 Pulse 94 04/29/17 07:00 Resp 22 04/29/17 08:00 BP 118/73 04/29/17 07:00 Pulse Ox 89 L 04/29/17 07:00 Intake & Output 04/28/17 04/29/17 04/29/17 18:59 06:59 18:59 Intake Total 640 236 Balance 640 236 Intake: Oral 640 236 Other: Voiding Method Toilet Toilet # Voids 2 2 - Constitutional General appearance: Present: average body habitus, mild distress (Appears dyspneic), obese - Respiratory Respiratory: bilateral: CTA, other (Somewhat tachypnic) - Cardiovascular Rhythm: regular - Gastrointestinal General gastrointestinal: Present: normal bowel sounds, soft, tenderness ( Minimal tenderness in bilateral upper quadrants. No right lower quadrant or left lower quadrant tenderness today.) - Labs CBC & Chem 7: 04/29/17 07:06 04/28/17 15:52 Labs: Abnormal Lab Results - Last 24 Hours (Table) 04/28/17 04/28/17 04/29/17 Range/Units 12:54 15:52 07:06 RBC 3.73 L (3.80-5.40) m/uL Hgb 11.2 L (11.4-16.0) gm/dL Hct 33.8 L (34.0-46.0) % Plt Count 134 L (150-450) k/uL D-Dimer 3.59 H (<0.60) mg/L FEU Carbon Dioxide 18 L (22-30) mmol/L BUN 48 H (7-17) mg/dL Creatinine 1.52 H (0.52-1.04) mg/dL Glucose 121 H (74-99) mg/dL Microbiology - Last 24 Hours (Table) 04/27/17 01:57 Urine Culture - Preliminary Urine,Clean Catch Gram Neg Bacilli Assessment and Plan (1) Abdominal pain Status: Acute (2) Ovarian mass Status: Acute (3) Renal mass Status: Acute (4) Tachypnea Status: Acute Plan: Her abdominal pain is improved. She has a nonsurgical abdomen. Will follow on the periphery. Notify if any changes in her condition and he would like her evaluated sooner.
[2017-04-29 13:49] LABS: Glucose,Whole Blood 118 mg/dL (75-99)
--- NOTE | 2017-04-29 14:36 | XR ---
EXAMINATION TYPE: XR chest 1V portable DATE OF EXAM: 04/29/2017 COMPARISON: NONE INDICATION: Hypoxia TECHNIQUE: Single frontal view of the chest is obtained. FINDINGS: The heart size is enlarged. The pulmonary vasculature is normal. There is a consolidation in the right lower lobe. Correlate for pneumonia. Atypical pulmonary edema c ould be considered. Some milder consolidation is in the left base. IMPRESSION: 1. Right and to a lesser degree left lung infiltrates with a patchy appearance could be related to pu lmonary edema. Consider pneumonia within the differential. Clinical correlation and follow-up is adolph mmended.
[2017-04-29 15:28] LABS: Creatine Kinase MB 2.1 ng/mL (0.0-2.4)
[2017-04-29 15:39] LABS: Troponin I 0.167 ng/mL (0.000-0.034)
[2017-04-29] MEDS ORDERED: PIPERACILLIN-TAZOBACTAM 3.375 GM in DEXTROSE/WATER 1 50ML.BAG IVPB SCH (16:15)
[2017-04-29] MEDS ORDERED: FUROSEMIDE 10 MG/ML 2 ML VIAL IV STA (16:21)
[2017-04-29 17:28] LABS: ALT 38 U/L (9-52); AST 46 U/L (14-36); Alkaline Phosphatase 97 U/L (38-126); Anion Gap 8 mmol/L; Blood Urea Nitrogen 47 mg/dL (7-17); Calcium 9.5 mg/dL (8.4-10.2); Carbon Dioxide 25 mmol/L (22-30); Chloride 112 mmol/L (98-107); Glucose 119 mg/dL (74-99); Non-African American GFR(MDRD) >60 (>60 ml/min/1.73 sqM); Sodium 145 mmol/L (137-145); Total Bilirubin 0.7 mg/dL (0.2-1.3); Total Protein 7.5 g/dL (6.3-8.2)
--- NOTE | 2017-04-29 17:36 | P.CONS ---
History of Present Illness - Reason for Consult Consult date: 04/29/17 - Chief Complaint shortness of breath - History of Present Illness Occasion female who suffers from obesity presents the emergency center on 2016 with significant left-sided abdominal pain. The pain became so severe that she presented to the emergency center where she also had evidence of a low- grade fever and some chills. Because of her severe abdominal pain computed tomography scan of the abdomen and pelvis was performed. Ovarian cyst was seen. A mass on the right kidney was also seen. She was seen by gynecology because of the adnexal lesion. She's had follow-up in the past of the adnexal lesion and was being monitored. However it appears that the renal lesion is new. She's now been seen by urology. They discussed a laparoscopic procedure for removal of probable renal cell carcinoma. This will be scheduled in the outpatient setting. The patient however is become short of breath. It is noted that she does have a long-standing history of sleep apnea. It is not using her machine while she is here. The patient had become as noted very short of breath. VQ scan was performed reveals evidence of no significant match defects. Chest x-ray is performed showing evidence of extensive fluffy infiltrate consistent with volume overload. The concerns for sepsis the infectious disease consultation was requested. Review of Systems HEENT:Denies headache or acute visual change. Denies sinus or mouth discomforts. Denies neck stiffness or pain. Denies significant oral cavity pain. Denies difficulty on swallowing. Lungs: As per the HPI is stiffness shortness of breath but does not have cough or sputum production or hemoptysis Cardiovascular: Denies chest pain, chest wall pain, orthopnea, syncope; but does have dyspnea with exertion Gastrointestinal:Denies nausea, vomiting, diarrhea, constipation, hematemesis, melena, hematochezia. No no significant change of bowel habit noticed. No pain has improved Musculoskeletal: denies significant myalgias or arthralgias. No new joint swelling. Denies new back pain. Skin: Denies new rash or lesions. No new ulcers or wounds are related.. Neuro: Denies headache or visual change. Denies any new onset weakness or difficulty with ambulation. Denies falls or seizures. Psychiatric:Denies anxiety or depression. Endocrine: Denies significant fatigue, denies significant weight loss or weight gain. Urologic: denies hematuria Past Medical History Past Medical History: Hypertension, Sleep Apnea/CPAP/BIPAP Additional Past Medical History / Comment(s): OVARIAN CYST-LATERALITY UNKNOWN, lmp 2 WEEKS AGO-IRREGULAR, NO LONGER USES CPAP, DIVERTICULAR DX. History of Any Multi-Drug Resistant Organisms: None Reported Past Surgical History: Cholecystectomy Additional Past Surgical History / Comment(s): CERVICAL CONIZATION, COLONOSCOPY , HYSTEROSCOPY, D&C. Past Anesthesia/Blood Transfusion Reactions: No Reported Reaction Additional Psychological History / Comment(s): . Does not work outside of the home. No recent travel or animal exposures. Lives with her is a smoker, but she is a nonsmoker. No significant alcohol abuse Smoking Status: Never smoker - Past Family History Mother Family Medical History: COPD Additional Family Medical History / Comment(s): MOTHER OF COPD AT THE AGE OF 74YRS. SHE WAS A SMOKER. Father Additional Family Medical History / Comment(s): FATHER HAD A RUPTURED ESOPHAGUS AND OF LEGIONAIRRE'S DX WHILE HOSPITALIZED FOR THE ESOPHAGUS. Medications and Allergies Home Medications and Allergies Comment(s): Laboratory Results WBC 5.7 k/uL (3.8-10.6) 04/29/17 07:06 RBC 3.73 m/uL (3.80-5.40) L 04/29/17 07:06 Hgb 11.2 gm/dL (11.4-16.0) L 04/29/17 07:06 Hct 33.8 % (34.0-46.0) L 04/29/17 07:06 MCV 90.8 fL (80.0-100.0) 04/29/17 07:06 MCH 30.0 pg (25.0-35.0) 04/29/17 07:06 MCHC 33.0 g/dL (31.0-37.0) 04/29/17 07:06 RDW 15.3 % (11.5-15.5) 04/29/17 07:06 Plt Count 134 k/uL (150-450) L 04/29/17 07:06 Neutrophils % 84 % 04/27/17 01:57 Lymphocytes % 10 % 04/27/17 01:57 Monocytes % 4 % 04/27/17 01:57 Eosinophils % 1 % 04/27/17 01:57 Basophils % 0 % 04/27/17 01:57 Neutrophils # 11.3 k/uL (1.3-7.7) H 04/27/17 01:57 Lymphocytes # 1.3 k/uL (1.0-4.8) 04/27/17 01:57 Monocytes # 0.5 k/uL (0-1.0) 04/27/17 01:57 Eosinophils # 0.1 k/uL (0-0.7) 04/27/17 01:57 Basophils # 0.1 k/uL (0-0.2) 04/27/17 01:57 D-Dimer 3.59 mg/L FEU (<0.60) H 04/28/17 12:54 Sodium 140 mmol/L (137-145) 04/28/17 15:52 Potassium 5.1 mmol/L (3.5-5.1) 04/28/17 15:52 Chloride 107 mmol/L (98-107) 04/28/17 15:52 Carbon Dioxide 18 mmol/L (22-30) L 04/28/17 15:52 Anion Gap 15 mmol/L 04/28/17 15:52 BUN 48 mg/dL (7-17) H 04/28/17 15:52 Creatinine 1.52 mg/dL (0.52-1.04) H 04/28/17 15:52 Est GFR (MDRD) Af Amer 43 (>60 ml/min/1.73 sqM) 04/28/17 15:52 Est GFR (MDRD) Non-Af 36 (>60 ml/min/1.73 sqM) 04/28/17 15:52 Glucose 121 mg/dL (74-99) H 04/28/17 15:52 POC Glucose (mg/dL) 118 mg/dL (75-99) H 04/29/17 13:45 POC Glu Chip Tuner ID Reji Alex 04/29/17 13:45 Plasma Lactic Acid Hero 1.5 mmol/L (0.7-2.0) 04/29/17 16:20 Calcium 9.0 mg/dL (8.4-10.2) 04/28/17 15:52 Total Bilirubin 1.0 mg/dL (0.2-1.3) 04/27/17 01:57 AST 25 U/L (14-36) 04/27/17 01:57 ALT 37 U/L (9-52) 04/27/17 01:57 Alkaline Phosphatase 86 U/L (38-126) 04/27/17 01:57 Total Creatine Kinase 101 U/L (30-135) 04/29/17 14:26 CK-MB (CK-2) 2.1 ng/mL (0.0-2.4) 04/29/17 14:26 CK-MB (CK-2) Rel Index 2.1 04/29/17 14:26 Troponin I 0.167 ng/mL (0.000-0.034) H* 04/29/17 14:26 Total Protein 7.3 g/dL (6.3-8.2) 04/27/17 01:57 Albumin 4.0 g/dL (3.5-5.0) 04/27/17 01:57 Amylase 44 U/L (30-110) 04/27/17 01:57 Lipase 100 U/L (23-300) 04/27/17 01:57 Urine Color Yellow 04/27/17 01:57 Urine Appearance Cloudy (Clear) H 04/27/17 01:57 Urine pH 5.5 (5.0-8.0) 04/27/17 01:57 Ur Specific Gardiner 1.023 (1.001-1.035) 04/27/17 01:57 Urine Protein Trace (Negative) H 04/27/17 01:57 Urine Glucose (UA) Negative (Negative) 04/27/17 01:57 Urine Ketones Negative (Negative) 04/27/17 01:57 Urine Blood Trace (Negative) H 04/27/17 01:57 Urine Nitrite Negative (Negative) 04/27/17 01:57 Urine Bilirubin Negative (Negative) 04/27/17 01:57 Urine Urobilinogen <2.0 mg/dL (<2.0) 04/27/17 01:57 Ur Leukocyte Esterase Large (Negative) H 04/27/17 01:57 Urine RBC 2 /hpf (0-5) 04/27/17 01:57 Urine WBC 18 /hpf (0-5) H 04/27/17 01:57 Ur Squamous Epith Cells 5 /hpf (0-4) H 04/27/17 01:57 Urine Bacteria Rare /hpf (None) H 04/27/17 01:57 Urine Mucus Few /hpf (None) H 04/27/17 01:57 Home Medications Medication Instructions Recorded Confirmed Type Aspirin 81 mg PO DAILY 05/02/16 04/27/17 History Atenolol [Atenolol] 50 mg PO DAILY 05/02/16 04/27/17 History Lisinopril/Hydrochlorothiazide 1 tab PO BID 05/02/16 04/27/17 History [Lisinopril-Hctz 20-12.5 mg Tab] Multivitamin/Iron/Folic Acid 1 tab PO DAILY 05/02/16 04/27/17 History [Centrum Complete Multivit Tab] Allergies Allergy/AdvReac Type Severity Reaction Status Date / Time No Known Allergies Allergy Verified 04/27/17 07:48 Physical Exam Vitals: Vital Signs Temp Pulse Pulse Resp BP BP Pulse Ox 04/29/17 16:27 92 04/29/17 16:02 88 04/29/17 15:10 24 04/29/17 14:48 91 L 04/29/17 14:47 97.6 F 87 24 133/79 87 L 04/29/17 13:45 96 04/29/17 13:42 85 22 131/73 91 L 04/29/17 13:24 92 04/29/17 13:05 22 91 L 04/29/17 08:00 22 04/29/17 07:03 22 91 L 04/29/17 07:00 97.3 F L 94 22 118/73 89 L 04/28/17 23:00 97.1 F L 89 20 117/64 93 L Intake and Output 04/29/17 04/29/17 04/29/17 06:59 14:59 22:59 Intake Total 240 236 Balance 240 236 Intake: Oral 240 236 Other: Voiding Method Toilet Toilet Toilet # Voids 2 2 56-year-old female has obesity and has evidence of shortness of breath.Again cough. Dentition somewhat poor. HEENT: Anicteric conjunctiva are pink and moist nasal mucosa grossly intact without significant lesions, there is no thrush. Neck: The neck is supple without significant lymphadenopathy or thyromegaly. Lungs: There is symmetrical bilateral air entry. There are coarse crackles throughout the lung vitale especially at the bases. Some scattered expiratory wheezes were also noted. No dullness or egophony is noted. Heart: Regular rate and rhythm with an audible S1-S2, no S3 soft S4. There is no significant murmur click or rub, PMI was nondisplaced. Abdomen: Obese, Positive bowel sounds soft and nontender without palpable masses or organomegaly. There was no guarding or rebound. Extremities: The upper extremities have excellent pulses they are symmetric, no significant petechiae or telangiectasia. No splinter hemorrhages were noted. The lower extremities are free from significant edema. The peripheral pulses were 2+ and symmetric. Neuro: Awake alert oriented to person place and time. There are no acute new gross focal sensory motor deficits. Results CBC & Chem 7: 04/29/17 07:06 04/28/17 15:52 Labs: Abnormal Lab Results - Last 24 Hours (Table) 04/29/17 04/29/17 04/29/17 Range/Units 07:06 13:45 14:26 RBC 3.73 L (3.80-5.40) m/uL Hgb 11.2 L (11.4-16.0) gm/dL Hct 33.8 L (34.0-46.0) % Plt Count 134 L (150-450) k/uL POC Glucose (mg/dL) 118 H (75-99) mg/dL Troponin I 0.167 H* (0.000-0.034) ng/mL Microbiology - Last 24 Hours (Table) 04/27/17 01:57 Urine Culture - Final Urine,Clean Catch Escherichia coli Laboratory Results WBC 5.7 k/uL (3.8-10.6) 04/29/17 07:06 RBC 3.73 m/uL (3.80-5.40) L 04/29/17 07:06 Hgb 11.2 gm/dL (11.4-16.0) L 04/29/17 07:06 Hct 33.8 % (34.0-46.0) L 04/29/17 07:06 MCV 90.8 fL (80.0-100.0) 04/29/17 07:06 MCH 30.0 pg (25.0-35.0) 04/29/17 07:06 MCHC 33.0 g/dL (31.0-37.0) 04/29/17 07:06 RDW 15.3 % (11.5-15.5) 04/29/17 07:06 Plt Count 134 k/uL (150-450) L 04/29/17 07:06 Neutrophils % 84 % 04/27/17 01:57 Lymphocytes % 10 % 04/27/17 01:57 Monocytes % 4 % 04/27/17 01:57 Eosinophils % 1 % 04/27/17 01:57 Basophils % 0 % 04/27/17 01:57 Neutrophils # 11.3 k/uL (1.3-7.7) H 04/27/17 01:57 Lymphocytes # 1.3 k/uL (1.0-4.8) 04/27/17 01:57 Monocytes # 0.5 k/uL (0-1.0) 04/27/17 01:57 Eosinophils # 0.1 k/uL (0-0.7) 04/27/17 01:57 Basophils # 0.1 k/uL (0-0.2) 04/27/17 01:57 D-Dimer 3.59 mg/L FEU (<0.60) H 04/28/17 12:54 Sodium 140 mmol/L (137-145) 04/28/17 15:52 Potassium 5.1 mmol/L (3.5-5.1) 04/28/17 15:52 Chloride 107 mmol/L (98-107) 04/28/17 15:52 Carbon Dioxide 18 mmol/L (22-30) L 04/28/17 15:52 Anion Gap 15 mmol/L 04/28/17 15:52 BUN 48 mg/dL (7-17) H 04/28/17 15:52 Creatinine 1.52 mg/dL (0.52-1.04) H 04/28/17 15:52 Est GFR (MDRD) Af Amer 43 (>60 ml/min/1.73 sqM) 04/28/17 15:52 Est GFR (MDRD) Non-Af 36 (>60 ml/min/1.73 sqM) 04/28/17 15:52 Glucose 121 mg/dL (74-99) H 04/28/17 15:52 POC Glucose (mg/dL) 118 mg/dL (75-99) H 04/29/17 13:45 POC Glu Chip Tuner JACK HewittReji brooks 04/29/17 13:45 Plasma Lactic Acid Hero 1.5 mmol/L (0.7-2.0) 04/29/17 16:20 Calcium 9.0 mg/dL (8.4-10.2) 04/28/17 15:52 Total Bilirubin 1.0 mg/dL (0.2-1.3) 04/27/17 01:57 AST 25 U/L (14-36) 04/27/17 01:57 ALT 37 U/L (9-52) 04/27/17 01:57 Alkaline Phosphatase 86 U/L (38-126) 04/27/17 01:57 Total Creatine Kinase 101 U/L (30-135) 04/29/17 14:26 CK-MB (CK-2) 2.1 ng/mL (0.0-2.4) 04/29/17 14:26 CK-MB (CK-2) Rel Index 2.1 04/29/17 14:26 Troponin I 0.167 ng/mL (0.000-0.034) H* 04/29/17 14:26 Total Protein 7.3 g/dL (6.3-8.2) 04/27/17 01:57 Albumin 4.0 g/dL (3.5-5.0) 04/27/17 01:57 Amylase 44 U/L (30-110) 04/27/17 01:57 Lipase 100 U/L (23-300) 04/27/17 01:57 Urine Color Yellow 04/27/17 01:57 Urine Appearance Cloudy (Clear) H 04/27/17 01:57 Urine pH 5.5 (5.0-8.0) 04/27/17 01:57 Ur Specific Gardiner 1.023 (1.001-1.035) 04/27/17 01:57 Urine Protein Trace (Negative) H 04/27/17 01:57 Urine Glucose (UA) Negative (Negative) 04/27/17 01:57 Urine Ketones Negative (Negative) 04/27/17 01:57 Urine Blood Trace (Negative) H 04/27/17 01:57 Urine Nitrite Negative (Negative) 04/27/17 01:57 Urine Bilirubin Negative (Negative) 04/27/17 01:57 Urine Urobilinogen <2.0 mg/dL (<2.0) 04/27/17 01:57 Ur Leukocyte Esterase Large (Negative) H 04/27/17 01:57 Urine RBC 2 /hpf (0-5) 04/27/17 01:57 Urine WBC 18 /hpf (0-5) H 04/27/17 01:57 Ur Squamous Epith Cells 5 /hpf (0-4) H 04/27/17 01:57 Urine Bacteria Rare /hpf (None) H 04/27/17 01:57 Urine Mucus Few /hpf (None) H 04/27/17 01:57 Microbiology 04/27/17 01:57 Urine,Clean Catch Urine Culture - Final Escherichia coli Assessment and Plan (1) E. coli UTI Narrative/Plan: 56-year-old female presents emergency center with significant abdominal pain. Due to the severe pain she had a computed tomography scan performed. There was no evidence of any acute intra-abdominal pathology and has been seen by surgery. However there was evidence of abnormal masses onto the right kidney. She's been seen by urology and there were plans for outpatient evaluation and surgical intervention for potential renal cell carcinoma. The patient has been seen by gynecology and will have ongoing follow-up that she has had for the complex ovarian mass. Patient does have evidence of a Escherichia coli urinary tract infection. It is davis susceptible continue Rocephin for now. No need to escalate to Zosyn. When she is ready for discharge oral cefuroxime to complete 7 days of therapy is indicated. The patient however is developed significant shortness of breath. Her chest x- ray reviewed personally. There is evidence of extensive volume overload. A dose of Lasix is given. She did have evidence of a doubling of her creatinine showing acute renal failure. Her Toradol was discontinued. If the creatinine is improved than the IV fluids may be placed to KVO. If her creatinine remains elevated would then consider nephrology consult and avoid further nephrotoxic agents. Urine output is to be monitored. Status: Acute (2) Volume overload Status: Acute (3) Renal mass, right Status: Acute
[2017-04-29 17:37] LABS: Potassium 5.4 mmol/L (3.5-5.1)
[2017-04-29] MEDS ORDERED: FUROSEMIDE 10 MG/ML 4 ML VIAL IV STA (18:53)
--- NOTE | 2017-04-29 19:05 | P.PN ---
Subjective Progress note being dictated for Dr. Lucas. Hospital course: 56 yr old with history of ovarian cyst, followed by Dr yang comes into the hospital with complaints of left sided abdominal pain, times 3. Pt was also noted to have associated fevers, chills however denies having urinary urgency, frequency, change in bowel habits. ct abdomen, multiple findings including fat stranding on the right lower abdomen, an ovarian cyst and a exophytic renal mass. 04/28/2017. Continues to have abdominal pain, under rib cage, mid abdominal pain above the umbilicus and left flank pain. Toradol added to med regime in addition to IV Dilaudid with no improvement in pain controll. States it feels like muscular, as she had been doing some heavy lifting prior to admission. D- dimer ordered, elevated. Worsened renal function, creatinine 1.52. No nausea or vomiting. Increased WBC. 04/29/2017 states better pain control with addition of muscle relaxants. hypoxic , requiring 3 L nasal cannula to maintain O2 sats of 89-91%. Afebrile. D- dimer elevated yesterday, unable to do CTA given patient's renal function. V/Q scan performed reporting low probability of PE. Chest x-ray pending. Alert and oriented 3 but at times appears delirious, saying "off the all things" as per significant other. Review of systems: HEENT: Denies headache or focal deficits. Denies any dizziness or lightheadedness. Respiratory: Complains of shortness of breath with exertion. Cardiac: Denies any chest pain, palpitations. GI: Denies any nausea, vomiting, or diarrhea. Denies any abdominal tenderness. : Denies any dysuria. Psychiatry: Denies any anxiety or depression. Active Medications Acetaminophen (Tylenol Tab) 650 mg PO Q6HR PRN PRN Reason: Mild Pain or Fever > 100.5 Hydrocodone Bitart/Acetaminophen (Waterfall 7.5-325) 1 each PO Q6H PRN PRN Reason: Pain Last Admin: 04/28/17 20:16 Dose: 1 each Albuterol/Ipratropium (Duoneb 0.5 Mg-3 Mg/3 Ml Soln) 3 ml INHALATION RT-QID KERA Last Admin: 04/29/17 16:02 Dose: 3 ml Albuterol/Ipratropium (Duoneb 0.5 Mg-3 Mg/3 Ml Soln) 3 ml INHALATION RT-Q2H PRN PRN Reason: Shortness Of Breath Or Wheezing Atenolol (Tenormin) 50 mg PO DAILY [facility] Last Admin: 04/29/17 09:28 Dose: 50 mg Cyclobenzaprine HCl (Flexeril) 10 mg PO TID [facility] Last Admin: 04/29/17 16:32 Dose: Not Given Hydromorphone HCl (Dilaudid) 1 mg IV Q3HR PRN PRN Reason: Severe Pain Last Admin: 04/28/17 08:17 Dose: 1 mg Sodium Chloride (Saline 0.9%) 1,000 mls @ 100 mls/hr IV .Q10H [facility] Last Admin: 04/29/17 09:28 Dose: 100 mls/hr Ceftriaxone Sodium 1,000 mg/ (Sodium Chloride) 50 mls @ 100 mls/hr IVPB Q24HR KERA Lorazepam (Ativan) 1 mg IV Q4HR PRN PRN Reason: Anxiety Last Admin: 04/29/17 03:33 Dose: 1 mg Miscellaneous Information (Rx Info: Iv Contrast Was Given) 1 each MISCELLANE DAILY PRN PRN Reason: Per Protocol Stop: 04/30/17 15:44 Naloxone HCl (Narcan) 0.2 mg IV Q2M PRN PRN Reason: Opioid Reversal Ondansetron HCl (Zofran) 4 mg IVP Q8HR PRN PRN Reason: Nausea And Vomiting Last Admin: 04/29/17 13:44 Dose: 4 mg Objective - Vital Signs Vital signs: Vital Signs Temp 97.3 F L 04/29/17 07:00 Pulse 94 04/29/17 07:00 Resp 22 04/29/17 08:00 BP 118/73 04/29/17 07:00 Pulse Ox 89 L 04/29/17 07:00 Intake & Output 04/28/17 04/29/17 04/29/17 18:59 06:59 18:59 Intake Total 640 236 Balance 640 236 Intake: Oral 640 236 Other: Voiding Method Toilet Toilet # Voids 2 2 - Exam - Constitutional General appearance: no acute distress - EENT Eyes: EOMI, PERRLA - Respiratory Respiratory: bilateral: CTA, negative: dullness, rales, rhonchi, coarse crackles - Cardiovascular Rhythm: regular Heart sounds: normal: S1, S2 Abnormal Heart Sounds: no systolic murmur - Gastrointestinal General gastrointestinal: no organomegaly, soft, mild tenderness as mentioned above to palpation supraumbilical, mid epigastric, positive bowel sounds. No guarding, no rigidity - Neurologic Neurologic: CNII-XII intact - Labs CBC & Chem 7: 04/29/17 07:06 04/29/17 16:39 Labs: Abnormal Lab Results - Last 24 Hours (Table) 04/28/17 04/28/17 04/29/17 Range/Units 12:54 15:52 07:06 RBC 3.73 L (3.80-5.40) m/uL Hgb 11.2 L (11.4-16.0) gm/dL Hct 33.8 L (34.0-46.0) % Plt Count 134 L (150-450) k/uL D-Dimer 3.59 H (<0.60) mg/L FEU Carbon Dioxide 18 L (22-30) mmol/L BUN 48 H (7-17) mg/dL Creatinine 1.52 H (0.52-1.04) mg/dL Glucose 121 H (74-99) mg/dL Microbiology - Last 24 Hours (Table) 04/27/17 01:57 Urine Culture - Preliminary Urine,Clean Catch Gram Neg Bacilli Assessment and Plan Plan: Acute hypoxic respiratory failure, possible pneumonia, possibly pulmonary edema. Left sided abdominal pain, sec to ovarian cyst, pt had a history of it, need to consider increase in size Acute UTI with E. coli right sided renal exophytic mass, further follow-up outpatient Acute renal failure, Hyperkalemia Acute delirium, acute metabolic encephalopathy, multifactorial related to hypoxia, Plan; continue on current medication regime ,monitoring and symptomatic treatment. Labs pending, EKG, serial troponins, echo ordered. Antibiotics changed to Zosyn. IV fluids discontinued .Infectious disease and pulmonary consulted. Evaluated by CLINIC PHYSICIAN DIRECTOR, surgery and urology with recommendations noted. Transfer to telemetry unit . Prognosis guarded given multiple complex medical issues.Further recommendations to follow. The impression and plan of care has been dictated as directed as a scribe. : I performed a H&P examination of this patient and discussed the same with the dictator. I agree with the dictator's note. Any additional findings/opinions/ etc. will be noted.
[2017-04-30 04:43] LABS: ALT 35 U/L (9-52); AST 100 U/L (14-36); Alkaline Phosphatase 153 U/L (38-126); Anion Gap 14 mmol/L; Blood Urea Nitrogen 44 mg/dL (7-17); Calcium 9.3 mg/dL (8.4-10.2); Carbon Dioxide 19 mmol/L (22-30); Chloride 111 mmol/L (98-107); Glucose 106 mg/dL (74-99); Non-African American GFR(MDRD) >60 (>60 ml/min/1.73 sqM); Sodium 144 mmol/L (137-145); Total Bilirubin 1.4 mg/dL (0.2-1.3); Total Protein 6.6 g/dL (6.3-8.2)
[2017-04-30] MEDS: IPRATROPIUM-ALBUTEROL 3 ML NEB INHALATION SCH ×4 (07:56→20:28)
[2017-04-30] MEDS: ATENOLOL 50 MG TAB PO SCH (08:35)
[2017-04-30] MEDS: CYCLOBENZAPRINE 10 MG TAB PO SCH ×3 (09:44→22:47)
[2017-04-30] MEDS: FUROSEMIDE 10 MG/ML 4 ML VIAL IV SCH (10:37)
--- NOTE | 2017-04-30 11:50 | P.CNPUL ---
History of Present Illness Consult date: 04/30/17 Reason for consult: other Chief complaint: Low saturations and shortness of breath History of present illness: Consult dated 04/30/2017 This is a 56-year-old female who I'm asked to see because of low saturations and impending respiratory distress/difficulty. She asked he was admitted on April 27. She apparently came left lower quadrant abdominal pain. It been going on for 2 days prior to admission. The pain was sharp. It did not radiate. She apparently had some nausea. Did not have any vomiting. There is no fever chills chest pain shortness breath at that time constipation diarrhea blood in her stools or anything like that. There is no urinary complaints. The patient was evaluated for possible appendicitis. Really not thought to have appendicitis by the numerous consultants who saw her. I was called yesterday patient. 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 Chest x-ray apparently showed a either a combination of heart failure and/or pneumonia. Her BMP was very elevated as a diagnosis of sleep apnea and uses CPAP for that. Lifelong nonsmoker. Not thought to have chronic lung disease. The patient currently is resting comfortably. No shortness of breath. I gave BiPAP orders but I don't believe she ever went on BiPAP. Currently just on nasal O2. Denies any complaints at this time. No coughing no wheezing. No phlegm production. She was given diuretics. She was also started on some IV Rocephin by Dr. Arias and infectious disease. Review of Systems A 12 point review of systems is currently negative for any complaints. Her abdominal pain is pretty much subsided. In addition she denies any shortness of breath currently. No cough no wheezing. No phlegm production. No nausea vomiting or diarrhea. No chest pain. Past Medical History Past Medical History: Hypertension, Sleep Apnea/CPAP/BIPAP Additional Past Medical History / Comment(s): OVARIAN CYST-LATERALITY UNKNOWN, lmp 2 WEEKS AGO-IRREGULAR, NO LONGER USES CPAP, DIVERTICULAR DX. History of Any Multi-Drug Resistant Organisms: None Reported Past Surgical History: Cholecystectomy Additional Past Surgical History / Comment(s): CERVICAL CONIZATION, COLONOSCOPY , HYSTEROSCOPY, D&C. Past Anesthesia/Blood Transfusion Reactions: No Reported Reaction Additional Psychological History / Comment(s): . Does not work outside of the home. No recent travel or animal exposures. Lives with her is a smoker, but she is a nonsmoker. No significant alcohol abuse Smoking Status: Never smoker - Past Family History Mother Family Medical History: COPD Additional Family Medical History / Comment(s): MOTHER OF COPD AT THE AGE OF 74YRS. SHE WAS A SMOKER. Father Additional Family Medical History / Comment(s): FATHER HAD A RUPTURED ESOPHAGUS AND OF LEGIONAIRRE'S DX WHILE HOSPITALIZED FOR THE ESOPHAGUS. Medications and Allergies Home Medications Medication Instructions Recorded Confirmed Type Aspirin 81 mg PO DAILY 05/02/16 04/27/17 History Atenolol [Atenolol] 50 mg PO DAILY 05/02/16 04/27/17 History Lisinopril/Hydrochlorothiazide 1 tab PO BID 05/02/16 04/27/17 History [Lisinopril-Hctz 20-12.5 mg Tab] Multivitamin/Iron/Folic Acid 1 tab PO DAILY 05/02/16 04/27/17 History [Centrum Complete Multivit Tab] Allergies Allergy/AdvReac Type Severity Reaction Status Date / Time No Known Allergies Allergy Verified 04/27/17 07:48 Physical Exam Osteopathic Statement: *. No significant issues noted on an osteopathic structural exam other than those noted in the History and Physical/Consult. Vitals: Vital Signs Temp Pulse Pulse Resp BP BP Pulse Ox 04/30/17 11:09 98.3 F 82 20 156/84 95 04/30/17 11:06 72 04/30/17 10:53 76 04/30/17 08:00 97.9 F 75 18 132/65 95 04/30/17 04:00 97.2 F L 83 20 120/67 94 L 04/30/17 00:00 97.3 F L 85 20 137/78 93 L 04/29/17 21:34 84 04/29/17 21:23 88 04/29/17 20:00 97.2 F L 86 20 137/68 93 L 04/29/17 17:10 96.9 F L 88 28 H 146/71 90 L 04/29/17 16:27 92 04/29/17 16:02 88 04/29/17 15:10 24 04/29/17 14:48 91 L 04/29/17 14:47 97.6 F 87 24 133/79 87 L 04/29/17 13:45 96 04/29/17 13:42 85 22 131/73 91 L 04/29/17 13:24 92 04/29/17 13:05 22 91 L Intake and Output 04/29/17 04/30/17 04/30/17 22:59 06:59 14:59 Output Total 750 1900 Balance -750 -1900 Output: Urine 750 1900 Other: Voiding Method Indwelling Catheter Bedside Commode Bedside Commode # Voids 2 1 Weight 80.8 kg No acute distress, oriented 3. HEENT examination is grossly unremarkable. Mucous membranes are moist. No oral lesions. Neck supple. Full range of motion. No adenopathy or thyromegaly. Neck veins are flat. Cardiovascular examination reveals regular rhythm rate. S1-S2 normal. No S3- S4 or murmur. Lungs reveal some bibasilar crackles. Breath sounds are diminished. Slight prolongation. No no rhonchi. Breath sounds are equal bilaterally. Abdomen soft bowel sounds are heard. Her abdomen is obese. No tenderness on palpation. Extremities reveal some mild edema. No cyanosis or clubbing. Skin without rash. Neurologic examination is recent nonfocal. Results - Laboratory Findings CBC and BMP: 04/29/17 07:06 04/30/17 03:10 PT/INR, D-dimer D-Dimer 3.59 mg/L FEU (<0.60) H 04/28/17 12:54 Abnormal lab findings: Abnormal Labs 04/27/17 04/27/17 04/27/17 01:57 01:57 01:57 WBC 13.5 H RBC Hgb Hct Plt Count Neutrophils # 11.3 H D-Dimer Sodium 135 L Potassium Chloride Carbon Dioxide BUN Creatinine Glucose 160 H POC Glucose (mg/dL) Total Bilirubin AST Alkaline Phosphatase Troponin I Albumin Urine Appearance Cloudy H Urine Protein Trace H Urine Blood Trace H Ur Leukocyte Esterase Large H Urine WBC 18 H Ur Squamous Epith Cells 5 H Urine Bacteria Rare H Urine Mucus Few H 04/28/17 04/28/17 04/28/17 08:08 12:54 15:52 WBC 14.5 H RBC Hgb Hct Plt Count Neutrophils # D-Dimer 3.59 H Sodium Potassium Chloride Carbon Dioxide 18 L BUN 48 H Creatinine 1.52 H Glucose 121 H POC Glucose (mg/dL) Total Bilirubin AST Alkaline Phosphatase Troponin I Albumin Urine Appearance Urine Protein Urine Blood Ur Leukocyte Esterase Urine WBC Ur Squamous Epith Cells Urine Bacteria Urine Mucus 04/29/17 04/29/17 04/29/17 07:06 13:45 14:26 WBC RBC 3.73 L Hgb 11.2 L Hct 33.8 L Plt Count 134 L Neutrophils # D-Dimer Sodium Potassium Chloride Carbon Dioxide BUN Creatinine Glucose POC Glucose (mg/dL) 118 H Total Bilirubin AST Alkaline Phosphatase Troponin I 0.167 H* Albumin Urine Appearance Urine Protein Urine Blood Ur Leukocyte Esterase Urine WBC Ur Squamous Epith Cells Urine Bacteria Urine Mucus 04/29/17 04/29/17 04/30/17 16:39 20:39 03:10 WBC RBC Hgb Hct Plt Count Neutrophils # D-Dimer Sodium Potassium 5.4 H Chloride 112 H Carbon Dioxide BUN 47 H Creatinine Glucose 119 H POC Glucose (mg/dL) Total Bilirubin AST 46 H Alkaline Phosphatase Troponin I 0.151 H* 0.138 H* Albumin Urine Appearance Urine Protein Urine Blood Ur Leukocyte Esterase Urine WBC Ur Squamous Epith Cells Urine Bacteria Urine Mucus 04/30/17 03:10 WBC RBC Hgb Hct Plt Count Neutrophils # D-Dimer Sodium Potassium Chloride 111 H Carbon Dioxide 19 L BUN 44 H Creatinine Glucose 106 H POC Glucose (mg/dL) Total Bilirubin 1.4 H AST 100 H Alkaline Phosphatase 153 H Troponin I Albumin 3.4 L Urine Appearance Urine Protein Urine Blood Ur Leukocyte Esterase Urine WBC Ur Squamous Epith Cells Urine Bacteria Urine Mucus - Diagnostic Findings Chest x-ray: image reviewed (X-ray labs and medications are reviewed. The patient's examined.) Assessment and Plan (1) Sleep apnea Status: Acute (2) Pneumonia Status: Acute (3) Obesity Status: Acute (4) Pickwickian syndrome Status: Acute (5) Abdominal pain Status: Acute (6) Ovarian mass Status: Acute (7) Renal mass, right Status: Acute (8) Tachypnea Status: Acute (9) Volume overload Status: Acute Plan: Plan dated 04/30/2017 The patient's shortness of breath and hypoxemia with low saturations probably is multifactorial in part related to heart failure/fluid overload possible pneumonia and also sleep apnea syndrome. The patient may also component of obesity/hypoventilation syndrome or pickwickian syndrome. The patient seemed be relatively comfortable right now. Not complaining of shortness of breath. Really not coughing up any phlegm. The patient was started on IV Rocephin as per infectious disease and also given some additional diuretic both by the primary service and myself. We'll continue to follow. I did give BiPAP orders just in case. Additional recommendations and suggestions are forthcoming. Meds labs and x-rays are all reviewed. Time with Patient: Greater than 30
--- NOTE | 2017-04-30 11:58 | P.CRDCN ---
History of Present Illness History of present illness: Cardiology consultation on this 56-year-old female with shortness of breath who was admitted with abdominal discomfort and computed tomography scan suggested a solid exophytic lesion associated with the kidney as well as possible appendicitis and she was managed conservatively and treated with IV fluids. She was brought upstairs to the telemetry floor with shortness of breath at rest. Yesterday she got 1 dose of IV Lasix which resulted in improvement in his symptoms but she is still short of breath. She denies any chest discomfort. She also has abdominal discomfort in the abdomen feels tight, According to the patient She underwent a VQ scan which showed low probability for pulmonary embolism Labs are reviewed potassium is 5.4 kidney functions are normal borderline troponins are 0.16, 0.15 and 0.14 BNP 13,400 Past history of hypertension and obstructive sleep apnea using CPAP mask at home history of ovarian cyst history of a solid mass in relation to the kidney, possible appendicitis past history of cholecystectomy Medications at home include aspirin atenolol lisinopril hydrochlorothiazide ALLERGIES none On examination Afebrile 98.3F, pulse rate in the 70s and 80s, blood pressure 156/84 mmHg Breath sounds are reduced bilaterally with crackles at the base Heart sounds are soft Abdomen is tender Extremities are warm ECGs show any definite ST segment abnormalities, sinus rhythm noted Impression Patient presenting with an acute abdomen, managed conservatively by the surgeons History of hypertension Fluid overload Low probability VQ scan for pulmonary embolism Troponins are mildly abnormal Suggest Daily IV Lasix 2-D echo and Doppler study to assess cardiac structure and function Continue antihypertensive therapy Past Medical History Past Medical History: Hypertension, Sleep Apnea/CPAP/BIPAP Additional Past Medical History / Comment(s): OVARIAN CYST-LATERALITY UNKNOWN, lmp 2 WEEKS AGO-IRREGULAR, NO LONGER USES CPAP, DIVERTICULAR DX. History of Any Multi-Drug Resistant Organisms: None Reported Past Surgical History: Cholecystectomy Additional Past Surgical History / Comment(s): CERVICAL CONIZATION, COLONOSCOPY , HYSTEROSCOPY, D&C. Past Anesthesia/Blood Transfusion Reactions: No Reported Reaction Additional Psychological History / Comment(s): . Does not work outside of the home. No recent travel or animal exposures. Lives with her is a smoker, but she is a nonsmoker. No significant alcohol abuse Smoking Status: Never smoker - Past Family History Mother Family Medical History: COPD Additional Family Medical History / Comment(s): MOTHER OF COPD AT THE AGE OF 74YRS. SHE WAS A SMOKER. Father Additional Family Medical History / Comment(s): FATHER HAD A RUPTURED ESOPHAGUS AND OF LEGIONAIRRE'S DX WHILE HOSPITALIZED FOR THE ESOPHAGUS. Medications and Allergies Home Medications Medication Instructions Recorded Confirmed Type Aspirin 81 mg PO DAILY 05/02/16 04/27/17 History Atenolol [Atenolol] 50 mg PO DAILY 05/02/16 04/27/17 History Lisinopril/Hydrochlorothiazide 1 tab PO BID 05/02/16 04/27/17 History [Lisinopril-Hctz 20-12.5 mg Tab] Multivitamin/Iron/Folic Acid 1 tab PO DAILY 05/02/16 04/27/17 History [Centrum Complete Multivit Tab] Allergies Allergy/AdvReac Type Severity Reaction Status Date / Time No Known Allergies Allergy Verified 04/27/17 07:48 Physical Exam Vitals: Vital Signs Temp Pulse Pulse Resp BP BP Pulse Ox 04/30/17 11:09 98.3 F 82 20 156/84 95 04/30/17 11:06 72 04/30/17 10:53 76 04/30/17 08:00 97.9 F 75 18 132/65 95 04/30/17 04:00 97.2 F L 83 20 120/67 94 L 04/30/17 00:00 97.3 F L 85 20 137/78 93 L 04/29/17 21:34 84 04/29/17 21:23 88 04/29/17 20:00 97.2 F L 86 20 137/68 93 L 04/29/17 17:10 96.9 F L 88 28 H 146/71 90 L 04/29/17 16:27 92 04/29/17 16:02 88 04/29/17 15:10 24 04/29/17 14:48 91 L 04/29/17 14:47 97.6 F 87 24 133/79 87 L 04/29/17 13:45 96 04/29/17 13:42 85 22 131/73 91 L 04/29/17 13:24 92 04/29/17 13:05 22 91 L Intake and Output 04/29/17 04/30/17 04/30/17 22:59 06:59 14:59 Output Total 750 1900 Balance -750 -1900 Output: Urine 750 1900 Other: Voiding Method Indwelling Catheter Bedside Commode Bedside Commode # Voids 2 1 Weight 80.8 kg Results 04/29/17 07:06 04/30/17 03:10 Cardiac Enzymes 04/29/17 04/29/17 04/29/17 Range/Units 14:26 16:39 20:39 AST 46 H (14-36) U/L CK-MB (CK-2) 2.1 (0.0-2.4) ng/mL Troponin I 0.167 H* 0.151 H* (0.000-0.034) ng/mL 04/30/17 04/30/17 Range/Units 03:10 03:10 AST 100 H (14-36) U/L CK-MB (CK-2) (0.0-2.4) ng/mL Troponin I 0.138 H* (0.000-0.034) ng/mL Comprehensive Metabolic Panel 04/29/17 04/30/17 Range/Units 16:39 03:10 Sodium 145 144 (137-145) mmol/L Potassium 5.4 H (3.5-5.1) mmol/L Chloride 112 H 111 H (98-107) mmol/L Carbon Dioxide 25 19 L (22-30) mmol/L BUN 47 H 44 H (7-17) mg/dL Creatinine 0.79 0.70 (0.52-1.04) mg/dL Glucose 119 H 106 H (74-99) mg/dL Calcium 9.5 9.3 (8.4-10.2) mg/dL AST 46 H 100 H (14-36) U/L ALT 38 35 (9-52) U/L Alkaline Phosphatase 97 153 H (38-126) U/L Total Protein 7.5 6.6 (6.3-8.2) g/dL Albumin 3.5 3.4 L (3.5-5.0) g/dL Current Medications Generic Name Dose Route Start Last Admin Trade Name Freq PRN Reason Stop Dose Admin Acetaminophen 650 mg 04/27/17 05:48 04/29/17 18:59 Tylenol Tab PO 650 mg Q6HR PRN Administration Mild Pain or Fever > 100.5 Hydrocodone Bitart/Acetaminophen 1 each 04/28/17 08:52 04/28/17 20:16 [place] 7.5-325 PO 1 each Q6H PRN Administration Pain Albuterol/Ipratropium 3 ml 04/29/17 12:00 04/30/17 10:53 Duoneb 0.5 Mg-3 Mg/3 Ml Soln INHALATION 3 ml RT-QID KERA Administration Albuterol/Ipratropium 3 ml 04/29/17 11:34 Duoneb 0.5 Mg-3 Mg/3 Ml Soln INHALATION RT-Q2H PRN Shortness Of Breath Or Wheezing Atenolol 50 mg 04/27/17 09:00 04/30/17 08:35 Tenormin PO 50 mg DAILY KERA Administration Cyclobenzaprine HCl 10 mg 04/28/17 16:00 04/30/17 09:44 Flexeril PO 10 mg TID KERA Administration Furosemide 40 mg 04/30/17 10:00 04/30/17 10:37 Lasix IV 40 mg DAILY KERA Administration Hydromorphone HCl 1 mg 04/27/17 05:48 04/28/17 08:17 Dilaudid IV 1 mg Q3HR PRN Administration Severe Pain Ceftriaxone Sodium 1,000 mg/ 50 mls @ 100 mls/hr 04/30/17 09:00 04/30/17 08: 35 Sodium Chloride IVPB 100 mls/hr Q24HR KERA Administration Lorazepam 1 mg 04/29/17 01:43 04/29/17 03:33 Ativan IV 1 mg Q4HR PRN Administration Anxiety Miscellaneous Information 1 each 04/28/17 15:43 Rx Info: Iv Contrast Was Given MISCELLANE 04/30/17 15:44 DAILY PRN Per Protocol Naloxone HCl 0.2 mg 04/27/17 05:48 Narcan IV Q2M PRN Opioid Reversal Ondansetron HCl 4 mg 04/27/17 05:48 04/29/17 13:44 Zofran IVP 4 mg Q8HR PRN Administration Nausea And Vomiting Intake and Output 04/29/17 04/30/17 04/30/17 22:59 06:59 14:59 Output Total 750 1900 Balance -750 -1900 Output: Urine 750 1900 Other: Voiding Method Indwelling Catheter Bedside Commode Bedside Commode # Voids 2 1 Weight 80.8 kg 04/29/17 07:06 04/30/17 03:10
--- NOTE | 2017-04-30 12:06 | PN ---
DATE OF SERVICE: 04/09/17 This 56 -year-old woman with past medical history of multiple medical problems was admitted with possible pneumonia and sepsis. The patient was transferred to [facility] for further evaluation and close treatment. Otherwise, seen and evaluated the patient along with the nurse practitioner. Please refer to the nurse practitioner notes documented as a scribe. CT scan of the abdomen showed 3 cm lesion in the anterior right kidney and some eccentric staining was also noted. No history of appendicitis per surgery. Past medical history reviewed. REVIEW OF SYSTEMS: Cardiovascular: As mentioned earlier. Respiratory: As mentioned earlier. GI: Complaining of diffuse pain. As mentioned earlier. : No dysuria. Nervous system: Diffuse weakness. Current medications are reviewed and include: 1. Tylenol 650 q6h prn. 2. [place] 7.5 mg. 3. DuoNeb q.i.d. and prn. 4. Rocephin. 5. Narcan. 6. Zofran. RECOMMENDATIONS: Continue current medications. Continue broad spectrum IV antibiotics. Infectious disease and pulmonary consultations have been sought. Prognosis guarded because of multiple complex medical issues. Further recommendations to follow. See orders for details. MTDD
--- NOTE | 2017-04-30 17:01 | P.PN ---
Subjective Progress note being dictated for Dr. Lucas. Hospital course: 56 yr old with history of ovarian cyst, followed by Dr yang comes into the hospital with complaints of left sided abdominal pain, times 3. Pt was also noted to have associated fevers, chills however denies having urinary urgency, frequency, change in bowel habits. ct abdomen, multiple findings including fat stranding on the right lower abdomen, an ovarian cyst and a exophytic renal mass. 04/28/2017. Continues to have abdominal pain, under rib cage, mid abdominal pain above the umbilicus and left flank pain. Toradol added to med regime in addition to IV Dilaudid with no improvement in pain controll. States it feels like muscular, as she had been doing some heavy lifting prior to admission. D- dimer ordered, elevated. Worsened renal function, creatinine 1.52. No nausea or vomiting. Increased WBC. 04/29/2017 states better pain control with addition of muscle relaxants. hypoxic , requiring 3 L nasal cannula to maintain O2 sats of 89-91%. Afebrile. D- dimer elevated yesterday, unable to do CTA given patient's renal function. V/Q scan performed reporting low probability of PE. Chest x-ray pending. Alert and oriented 3 but at times appears delirious, saying "off the all things" as per significant other. 04/30/2017 transferred to telemetry floor yesterday for abnormal EKG, elevated troponins. maintained on Rocephin as per infectious disease.evaluated by cardiology and pulmonary with recommendations noted. Echo pending. Maintained on Lasix IV push, nebulized bronchodilators with breathing improving. No cough. Diuresing well with 24-hour I&O reflecting a negative fluid balance. Review of systems: HEENT: Denies headache or focal deficits. Denies any dizziness or lightheadedness. Respiratory: Denies shortness of breath except with exertion. Cardiac: Denies any chest pain, palpitations. GI: Denies any nausea, vomiting, or diarrhea. Denies any abdominal tenderness. : Denies any dysuria. Psychiatry: Denies any anxiety or depression. Active Medications Acetaminophen (Tylenol Tab) 650 mg PO Q6HR PRN PRN Reason: Mild Pain or Fever > 100.5 Last Admin: 04/29/17 18:59 Dose: 650 mg Hydrocodone Bitart/Acetaminophen ([place] 7.5-325) 1 each PO Q6H PRN PRN Reason: Pain Last Admin: 04/28/17 20:16 Dose: 1 each Albuterol/Ipratropium (Duoneb 0.5 Mg-3 Mg/3 Ml Soln) 3 ml INHALATION RT-QID [facility] Last Admin: 04/30/17 15:44 Dose: 3 ml Albuterol/Ipratropium (Duoneb 0.5 Mg-3 Mg/3 Ml Soln) 3 ml INHALATION RT-Q2H PRN PRN Reason: Shortness Of Breath Or Wheezing Atenolol (Tenormin) 50 mg PO DAILY [facility] Last Admin: 04/30/17 08:35 Dose: 50 mg Cyclobenzaprine HCl (Flexeril) 10 mg PO TID [facility] Last Admin: 04/30/17 16:07 Dose: 10 mg Furosemide (Lasix) 40 mg IV DAILY [facility] Last Admin: 04/30/17 10:37 Dose: 40 mg Hydromorphone HCl (Dilaudid) 1 mg IV Q3HR PRN PRN Reason: Severe Pain Last Admin: 04/28/17 08:17 Dose: 1 mg Ceftriaxone Sodium 1,000 mg/ (Sodium Chloride) 50 mls @ 100 mls/hr IVPB Q24HR [facility] Last Admin: 04/30/17 08:35 Dose: 100 mls/hr Lorazepam (Ativan) 1 mg IV Q4HR PRN PRN Reason: Anxiety Last Admin: 04/29/17 03:33 Dose: 1 mg Naloxone HCl (Narcan) 0.2 mg IV Q2M PRN PRN Reason: Opioid Reversal Ondansetron HCl (Zofran) 4 mg IVP Q8HR PRN PRN Reason: Nausea And Vomiting Last Admin: 04/29/17 13:44 Dose: 4 mg Objective - Vital Signs Vital signs: Vital Signs Temp 98 F 04/30/17 16:00 Pulse 71 04/30/17 16:00 Resp 18 04/30/17 16:00 BP 119/79 04/30/17 16:00 Pulse Ox 97 04/30/17 16:00 Intake & Output 04/29/17 04/30/17 04/30/17 18:59 06:59 18:59 Intake Total 236 340 Output Total 750 1900 Balance -514 -1900 340 Weight 80.8 kg Intake: Intake, IV Titration 100 Amount cefTRIAXone 1,000 mg In 100 Sodium Chloride 0.9% 50 ml @ 100 mls/hr IVPB Q24HR [facility] Rx#:[id number] Oral 236 240 Output: Urine 750 1900 Other: Voiding Method Toilet Bedside Commode Bedside Commode # Voids 2 1 - Exam - Constitutional General appearance: no acute distress - EENT Eyes: EOMI, PERRLA - Respiratory Respiratory: Respiratory effort mildly increased, bilateral bases diminished with bibasilar crackles, no wheezing, no rhonchi - Cardiovascular Rhythm: regular Heart sounds: normal: S1, S2 Abnormal Heart Sounds: no systolic murmur, mild edema - Gastrointestinal General gastrointestinal: no organomegaly, soft, minimal diffuse tenderness, positive bowel sounds. No guarding, no rigidity - Neurologic Neurologic: CNII-XII intact - Labs CBC & Chem 7: 04/29/17 07:06 04/30/17 03:10 Labs: Abnormal Lab Results - Last 24 Hours (Table) 04/29/17 04/29/17 04/30/17 Range/Units 16:39 20:39 03:10 Potassium 5.4 H (3.5-5.1) mmol/L Chloride 112 H (98-107) mmol/L Carbon Dioxide (22-30) mmol/L BUN 47 H (7-17) mg/dL Glucose 119 H (74-99) mg/dL Total Bilirubin (0.2-1.3) mg/dL AST 46 H (14-36) U/L Alkaline Phosphatase (38-126) U/L Troponin I 0.151 H* 0.138 H* (0.000-0.034) ng/mL Albumin (3.5-5.0) g/dL 04/30/17 Range/Units 03:10 Potassium (3.5-5.1) mmol/L Chloride 111 H (98-107) mmol/L Carbon Dioxide 19 L (22-30) mmol/L BUN 44 H (7-17) mg/dL Glucose 106 H (74-99) mg/dL Total Bilirubin 1.4 H (0.2-1.3) mg/dL AST 100 H (14-36) U/L Alkaline Phosphatase 153 H (38-126) U/L Troponin I (0.000-0.034) ng/mL Albumin 3.4 L (3.5-5.0) g/dL Microbiology - Last 24 Hours (Table) 04/29/17 14:40 Blood Culture - Preliminary Blood No Growth after 24 hours 04/29/17 13:20 Blood Culture - Preliminary Blood No Growth after 24 hours 04/27/17 01:57 Urine Culture - Final Urine,Clean Catch Escherichia coli Assessment and Plan Plan: Acute hypoxic respiratory failure, possible pneumonia, possibly pulmonary edema , and sleep apnea. Left sided abdominal pain, sec to ovarian cyst, pt had a history of it, need to consider increase in size Acute UTI with E. coli right sided renal exophytic mass, further follow-up outpatient Acute renal failure, Hyperkalemia Acute delirium, acute metabolic encephalopathy, multifactorial related to hypoxia, Plan; continue on current medication regime ,monitoring and symptomatic treatment. Yesterday hyperkalemic, potassium from today hemolysed, repeated and pending. echo pending. Antibiotics as per Infectious disease. BiPAP as per pulmonary .Prognosis guarded given multiple complex medical issues.Further recommendations to follow. The impression and plan of care has been dictated as directed as a scribe. : I performed a H&P examination of this patient and discussed the same with the dictator. I agree with the dictator's note. Any additional findings/opinions/ etc. will be noted.
[2017-05-01 07:54] LABS: Anisocytosis Slight; CH 29.4; CHCM 32.4; HCT 36.1 % (34.0-46.0); HDW 2.85; HGB 11.2 gm/dL (11.4-16.0); MCH 28.3 pg (25.0-35.0); MCV 91.5 fL (80.0-100.0); Mean Platelet Volume 8.7; RBC 3.95 m/uL (3.80-5.40); WBC 7.7 k/uL (3.8-10.6)
[2017-05-01] MEDS: IPRATROPIUM-ALBUTEROL 3 ML NEB INHALATION SCH ×4 (08:07→21:01)
[2017-05-01 09:03] LABS: ALT 48 U/L (9-52); AST 54 U/L (14-36); Alkaline Phosphatase 133 U/L (38-126); Anion Gap 10 mmol/L; Blood Urea Nitrogen 32 mg/dL (7-17); Calcium 8.7 mg/dL (8.4-10.2); Carbon Dioxide 29 mmol/L (22-30); Chloride 103 mmol/L (98-107); Glucose 97 mg/dL (74-99); Non-African American GFR(MDRD) >60 (>60 ml/min/1.73 sqM); Potassium 4.1 mmol/L (3.5-5.1); Sodium 142 mmol/L (137-145); Total Bilirubin 0.7 mg/dL (0.2-1.3); Total Protein 5.7 g/dL (6.3-8.2)
[2017-05-01] MEDS: ATENOLOL 50 MG TAB PO SCH (09:21)
[2017-05-01] MEDS: FUROSEMIDE 10 MG/ML 4 ML VIAL IV SCH (09:21)
[2017-05-01] MEDS: CYCLOBENZAPRINE 10 MG TAB PO SCH ×3 (10:24→21:27)
--- NOTE | 2017-05-01 11:17 | XR ---
EXAMINATION TYPE: XR chest 1V portable DATE OF EXAM: 05/01/2017 COMPARISON: 04/29/2017 HISTORY: Shortness of breath, pneumonia TECHNIQUE: Single frontal view of the chest is obtained. FINDINGS: Diffuse bilateral airspace disease appears to be slightly improved. No pleural effusion or pneumothorax. Arthropathy of the shoulders. The heart is prominent. IMPRESSION: 1. Slight interval improvement in the diffuse bilateral airspace disease.
--- NOTE | 2017-05-01 11:45 | ECHOF ---
Referral Reason:LV fx MEASUREMENTS -------- HEIGHT: 172.7 cm WEIGHT: 123.4 kg BP: 125/62 IVSd: 1.1 cm (0.6 - 1.1) LVIDd: 4.4 cm (3.9 - 5.3) LVPWd: 1.4 cm (0.6 - 1.1) IVSs: 2.0 cm LVIDs: 2.9 cm LVPWs: 1.8 cm Ao Diam: 3.1 cm (2.0 - 3.7) AV Cusp: 2.2 cm (1.5 - 2.6) LA Diam: 3.2 cm (2.7 - 3.8) MV EXCURSION: 16.312 mm (> 18.000) MV EF SLOPE: 81 mm/s (70 - 150) EPSS: 0.4 cm MV E Justice: 1.32 m/s MV DecT: 187 ms MV A Justice: 1.12 m/s MV E/A Ratio: 1.18 RAP: 5.00 mmHg RVSP: 19.13 mmHg FINDINGS -------- Sinus rhythm with extra systolic beats. This was a technically good study. There is borderline concentric left ventricular hypertrophy. Overall left ventricular systolic function is normal with, an EF between 55 - 60 %. The right ventricle is normal in size and function. The left atrium is normal in size. The right atrium is normal in size. The aortic valve is trileaflet, and appears structurally normal. No aortic stenosis or regurgitation. The mitral valve leaflets are mildly thickened. Mild mitral regurgitation is present. Trace tricuspid regurgitation present. The right ventricular systolic pressure, as measured by Doppler, is 19.13mmHg. Pulmonic valve appears structurally normal. The aortic root size is normal. The pericardium is normal. CONCLUSIONS -------- 1. Sinus rhythm with extra systolic beats. 2. Mild mitral regurgitation is present. 3. Trace tricuspid regurgitation present. 4. The right ventricular systolic pressure, as measured by Doppler, is 19.13mmHg. 5. Pulmonic valve appears structurally normal. 6. The aortic root size is normal. 7. The pericardium is normal. 8. This was a technically good study. 9. There is borderline concentric left ventricular hypertrophy. 10. Overall left ventricular systolic function is normal with, an EF between 55 - 60 %. 11. The right ventricle is normal in size and function. 12. The left atrium is normal in size. 13. The right atrium is normal in size. 14. The aortic valve is trileaflet, and appears structurally normal. No aortic stenosis or regurgitation. 15. The mitral valve leaflets are mildly thickened. YARN CARRIER: Sahara Felder RDCS
--- NOTE | 2017-05-01 15:29 | P.PN ---
Subjective Principal diagnosis: Shortness of breath This is a 56-year-old female who presented to the hospital with symptoms of abdominal discomfort which had been going on for 2-3 days prior to admission. Pain was sharp in nature according to the patient. She did have associated nausea with no vomiting. No fever or chills. Patient became hypoxic and short of breath and for this reason a cardiology consultation was requested. CT of the abdomen and pelvis was performed which revealed a 3 cm lesion in the anterior right kidney area. Also revealed mild dilated dictation of the appendix suggesting early appendicitis. There was also a cystic lesion found in the left adnexal area. Transvaginal ultrasound was also performed which revealed left adnexal mass, neoplastic etiology should be considered. Echocardiogram with Doppler study was performed which revealed normal left ventricular systolic function. BNP level 13,400/troponins 0.16, 0.15, 0.13. Patient was diuresed with IV Lasix. It appears that she did get significant amounts of IV fluids on admission here. This morning she states that her breathing feels much better than it has over the past few days. Chest x-ray from today revealed slight interval improvement in the diffuse bilateral airspace disease. Patient continues to be on daily IV Lasix which we will continue. We will start the patient on a baby aspirin along with the statin. Patient needs continued investigation and follow-up regarding the abnormal abdominal findings. We will continue IV Lasix until tomorrow. She will have a follow-up with in the office post discharge, outpatient cardiac testing can be performed at that time. Objective - Vital Signs Vital signs: Vital Signs Temp 97.9 F 05/01/17 12:00 Pulse 74 05/01/17 12:00 Resp 18 05/01/17 12:00 BP 123/65 05/01/17 12:00 Pulse Ox 92 L 05/01/17 12:00 Intake & Output 04/30/17 05/01/17 05/01/17 18:59 06:59 18:59 Intake Total 460 480 Balance 460 480 Weight 123.4 kg Intake: Intake, IV Titration 100 Amount cefTRIAXone 1,000 mg In 100 Sodium Chloride 0.9% 50 ml @ 100 mls/hr IVPB Q24HR [facility] Rx#:[id number] Oral 360 480 Other: Voiding Method Bedside Commode Bedside Commode Bedside Commode # Voids 2 2 - Exam PHYSICAL EXAMINATION: HEENT: Head is atraumatic, normocephalic. Pupils equal, round. Neck is supple. There is no elevated jugular venous pressure. HEART EXAMINATION: Heart S1, S2 normal. No murmur or gallop heard. CHEST EXAMINATION: Reveal fine crackles to bilateral bases. ABDOMEN: Soft, nontender. Bowel sounds are heard. No organomegaly noted. EXTREMITIES: 2+ peripheral pulses with no evidence of peripheral edema and no calf tenderness noted. NEUROLOGIC patient is awake, alert and oriented -3. . - Labs CBC & Chem 7: 05/01/17 07:29 05/01/17 07:29 Labs: Abnormal Lab Results - Last 24 Hours (Table) 05/01/17 05/01/17 Range/Units 07: 07:29 Hgb 11.2 L (11.4-16.0) gm/dL RDW 16.0 H (11.5-15.5) % BUN 32 H (7-17) mg/dL AST 54 H (14-36) U/L Alkaline Phosphatase 133 H (38-126) U/L Total Protein 5.7 L (6.3-8.2) g/dL Albumin 2.9 L (3.5-5.0) g/dL Microbiology - Last 24 Hours (Table) 04/29/17 13:20 Blood Culture - Preliminary Blood No Growth after 48 hours 04/29/17 14:40 Blood Culture - Preliminary Blood No Growth after 24 hours Assessment and Plan (1) Diastolic CHF, acute on chronic Status: Acute (2) Acute renal failure Status: Acute (3) Abdominal pain Status: Acute (4) Ovarian mass Status: Acute (5) Pickwickian syndrome Status: Acute (6) Pneumonia Status: Acute (7) Renal mass Status: Acute (8) Sleep apnea Status: Acute Plan: Cardiology's perspective, we will resume her combination PHONG inhibitor and hydrochlorothiazide today. Continue IV Lasix for another 24 hours. DNP note has been reviewed, I agree with a documented findings and plan of care. Patient was seen and examined.
--- NOTE | 2017-05-01 15:41 | P.PN ---
Subjective This is a 56-year-old female who I'm asked to see because of low saturations and impending respiratory distress/difficulty. She asked he was admitted on April 27. She apparently came left lower quadrant abdominal pain. It been going on for 2 days prior to admission. The pain was sharp. It did not radiate. She apparently had some nausea. Did not have any vomiting. There is no fever chills chest pain shortness breath at that time constipation diarrhea blood in her stools or anything like that. There is no urinary complaints. The patient was evaluated for possible appendicitis. Really not thought to have appendicitis by the numerous consultants who saw her. I was called yesterday patient. She apparently was found to have some napkin band wrapper to saturations. Chest x-ray apparently showed a either a combination of heart failure and/or pneumonia. Her BMP was very elevated as a diagnosis of sleep apnea and uses CPAP for that. Lifelong nonsmoker. Not thought to have chronic lung disease. The patient currently is resting comfortably. No shortness of breath. I gave BiPAP orders but I don't believe she ever went on BiPAP. Currently just on nasal O2. Denies any complaints at this time. No coughing no wheezing. No phlegm production. She was given diuretics. She was also started on some IV Rocephin by Dr. Arias and infectious disease. On 05/01/2017, the patient is resting comfortably in bed. She is able to sit up on a chair. She was taken off her oxygen. Her pulse ox is above 90% on room air. She is not having any major respiratory difficulties. No cough sputum production. No chest that is so wheezing. Her follow-up chest x-ray from today shows interval improvement in the diffuse bilateral pulmonary infiltrates. I am suspecting that the patient had an underlying pulmonary edema. Echocardiogram was ordered and results are still pending for now. Meanwhile, no fever, no chills, no night sweats, no change in mental status, no other complaints otherwise. Objective - Vital Signs Vital signs: Vital Signs Temp 97.7 F 05/01/17 08:00 Pulse 76 05/01/17 11:45 Resp 18 05/01/17 08:00 BP 136/75 05/01/17 08:00 Pulse Ox 93 L 05/01/17 08:07 Intake & Output 04/30/17 05/01/17 05/01/17 18:59 06:59 18:59 Intake Total 460 180 Balance 460 180 Weight 123.4 kg Intake: Intake, IV Titration 100 Amount cefTRIAXone 1,000 mg In 100 Sodium Chloride 0.9% 50 ml @ 100 mls/hr IVPB Q24HR [facility] Rx#:[id number] Oral 360 180 Other: Voiding Method Bedside Commode Bedside Commode Bedside Commode # Voids 2 - Exam Head exam was generally normal. There was no scleral icterus or corneal arcus. Mucous membranes were moist. Neck is short and supple and there is significant crowding of posterior pharynx. There is a little neck masses. Lungs sounds are diminished in lung bases along with some limited bibasilar crackles.Cardiac exam revealed the PMI to be normally situated and sized. The rhythm was regular and no extrasystoles were noted during several minutes of auscultation. The first and second heart sounds were normal and physiologic splitting of the second heart sound was noted. There were no murmurs, rubs, clicks, or gallops. Abdomen is obese soft nontender. No organomegaly. No direct tenderness or rebound tenderness or guarding. Extremities reveal + edema and there is no cyanosis or clubbing at this point. Neurologically the patient is awake and alert. - Labs CBC & Chem 7: 05/01/17 07:29 05/01/17 07:29 Labs: Abnormal Lab Results - Last 24 Hours (Table) 05/01/17 05/01/17 Range/Units 07:29 07:29 Hgb 11.2 L (11.4-16.0) gm/dL RDW 16.0 H (11.5-15.5) % BUN 32 H (7-17) mg/dL AST 54 H (14-36) U/L Alkaline Phosphatase 133 H (38-126) U/L Total Protein 5.7 L (6.3-8.2) g/dL Albumin 2.9 L (3.5-5.0) g/dL Microbiology - Last 24 Hours (Table) 04/29/17 14:40 Blood Culture - Preliminary Blood No Growth after 24 hours 04/29/17 13:20 Blood Culture - Preliminary Blood No Growth after 24 hours Assessment and Plan Plan: Assessment 1 Acute hypoxic respiratory failure/shortness of breath secondary to pulmonary edema. Clinically the patient is improved. The patient is responding nicely to diuretics. Chest x-ray shows improvement in the beta pulmonary infiltrates compared to yesterday. 2 obesity, BMI of 41.4 3 obstructive sleep apnea 4 hypertension 5 diverticular disease 6 E. coli urine checked infection 7 a 3 cm exophytic lesion of the anterior right kidney, favor solid lesion such as renal cell carcinoma rather than a hemorrhagic or proteinaceous cyst. 8 left adnexal cystic lesion measuring 5.4 x 4.5 cm in size. Possible complex/ hemorrhagic ovarian cyst/tubo-ovarian abscess/cystic neoplasm of the left ovary 9 troponin leak Plan Clinically the patient is improving. Continue diuretics. Repeat chest x-ray in the morning. The patient was taken off oxygen and she is able to maintain a pulse ox above 90% for now. Awaiting results of the echocardiogram. The patient for the most part is doing well. She is being treated for any coronary artery infection with IV Rocephin. Renal mass will be monitored on outpatient basis. No significant abdominal pain and nausea or emesis at this point. His condition is stable. White cell count is not elevated. Function is also stable.
[2017-05-01] MEDS: ASPIRIN 81 MG CHEW PO SCH (16:35)
--- NOTE | 2017-05-01 18:08 | P.PN ---
Subjective Progress note being dictated for Dr. Lucas. Hospital course: 56 yr old with history of ovarian cyst, followed by Dr yang comes into the hospital with complaints of left sided abdominal pain, times 3. Pt was also noted to have associated fevers, chills however denies having urinary urgency, frequency, change in bowel habits. ct abdomen, multiple findings including fat stranding on the right lower abdomen, an ovarian cyst and a exophytic renal mass. 04/28/2017. Continues to have abdominal pain, under rib cage, mid abdominal pain above the umbilicus and left flank pain. Toradol added to med regime in addition to IV Dilaudid with no improvement in pain controll. States it feels like muscular, as she had been doing some heavy lifting prior to admission. D- dimer ordered, elevated. Worsened renal function, creatinine 1.52. No nausea or vomiting. Increased WBC. 04/29/2017 states better pain control with addition of muscle relaxants. hypoxic , requiring 3 L nasal cannula to maintain O2 sats of 89-91%. Afebrile. D- dimer elevated yesterday, unable to do CTA given patient's renal function. V/Q scan performed reporting low probability of PE. Chest x-ray pending. Alert and oriented 3 but at times appears delirious, saying "off the all things" as per significant other. 04/30/2017 transferred to telemetry floor yesterday for abnormal EKG, elevated troponins. maintained on Rocephin as per infectious disease.evaluated by cardiology and pulmonary with recommendations noted. Echo pending. Maintained on Lasix IV push, nebulized bronchodilators with breathing improving. No cough. Diuresing well with 24-hour I&O reflecting a negative fluid balance. 05/01/2017 diuresing well on Lasix.significant improvement in respiratory status , weaned off of oxygen, maintaining 92% on room air. Denies cough. Chest x- ray reporting improvement. Echocardiogram reports normal LV function, EF 55-60% . Objective - Vital Signs Vital signs: Vital Signs Temp 97.9 F 05/01/17 12:00 Pulse 76 05/01/17 16:40 Resp 18 05/01/17 12:00 BP 123/65 05/01/17 12:00 Pulse Ox 92 L 05/01/17 12:00 Intake & Output 04/30/17 05/01/1717 18:59 06:59 18:59 Intake Total 460 480 Balance 460 480 Weight 123.4 kg Intake: Intake, IV Titration 100 Amount cefTRIAXone 1,000 mg In 100 Sodium Chloride 0.9% 50 ml @ 100 mls/hr IVPB Q24HR [facility] Rx#:[id number] Oral 360 480 Other: Voiding Method Bedside Commode Bedside Commode Bedside Commode # Voids 2 2 - Exam - Constitutional General appearance: no acute distress, sitting up in chair, A and O 3, mood and affect normal - EENT Eyes: EOMI, PERRLA, conjunctiva normal - Respiratory Respiratory: Respiratory effort normal, bilateral bases diminished with bibasilar crackles, no wheezing, no rhonchi - Cardiovascular Rhythm: regular Heart sounds: normal: S1, S2 Abnormal Heart Sounds: no systolic murmur, mild edema - Gastrointestinal General gastrointestinal: no organomegaly, soft, minimal diffuse tenderness, positive bowel sounds. No guarding, no rigidity - Neurologic Neurologic: CNII-XII intact, no focal deficits, moves all 4 extremities, strength and sensation grossly intact. - Labs CBC & Chem 7: 05/01/17 07:29 05/01/17 07:29 Labs: Abnormal Lab Results - Last 24 Hours (Table) 05/01/17 05/01/17 Range/Units 07:29 07:29 Hgb 11.2 L (11.4-16.0) gm/dL RDW 16.0 H (11.5-15.5) % BUN 32 H (7-17) mg/dL AST 54 H (14-36) U/L Alkaline Phosphatase 133 H (38-126) U/L Total Protein 5.7 L (6.3-8.2) g/dL Albumin 2.9 L (3.5-5.0) g/dL Microbiology - Last 24 Hours (Table) 04/29/17 14:40 Blood Culture - Preliminary Blood No Growth after 48 hours 04/29/17 13:20 Blood Culture - Preliminary Blood No Growth after 48 hours Assessment and Plan Plan: Acute hypoxic respiratory failure, possible pneumonia, possibly pulmonary edema , and sleep apnea. Left sided abdominal pain, sec to ovarian cyst, pt had a history of it, need to consider increase in size Acute UTI with E. coli right sided renal exophytic mass, further follow-up outpatient Acute renal failure, Hyperkalemia Acute delirium, acute metabolic encephalopathy, multifactorial related to hypoxia, Plan; continue on current medication regime , lasix, antibiotics, monitoring and symptomatic treatment. Repeat chest x-ray in a.m.. Discharge planning in progress for tomorrow. The impression and plan of care has been dictated as directed as a scribe. : I performed a H&P examination of this patient and discussed the same with the dictator. I agree with the dictator's note. Any additional findings/opinions/ etc. will be noted.
--- NOTE | 2017-05-01 19:39 | P.PN ---
Subjective Principal diagnosis: Shortness of breath 56 yo female who suffers from obesity presents the emergency center on 2016 with significant left-sided abdominal pain. The pain became so severe that she presented to the emergency center where she also had evidence of a low- grade fever and some chills. Because of her severe abdominal pain computed tomography scan of the abdomen and pelvis was performed. Ovarian cyst was seen. A mass on the right kidney was also seen. She was seen by gynecology because of the adnexal lesion. She's had follow-up in the past of the adnexal lesion and was being monitored. However it appears that the renal lesion is new. She's now been seen by urology. They discussed a laparoscopic procedure for removal of probable renal cell carcinoma. This will be scheduled in the outpatient setting. The patient however is become short of breath. It is noted that she does have a long-standing history of sleep apnea. It is not using her machine while she is here. The patient had become as noted very short of breath. VQ scan was performed reveals evidence of no significant match defects. Chest x-ray is performed showing evidence of extensive fluffy infiltrate consistent with volume overload. The concerns for sepsis the infectious disease consultation was requested. At the time of her original evaluation is evidence of congestive heart failure/ volume overload. Diuresis with Lasix was initiated from this practitioner. Because of increasing shortness of breath and some tachypnea she is transferred to the selective care unit. She's been seen by pulmonary and cardiology. Her diuresis has been markedly enhance. She's feeling considerably better. There was concerns to potential pneumonia. Objective - Vital Signs Vital signs: Vital Signs Temp 98.0 F 05/01/17 16:00 Pulse 76 05/01/17 16:40 Resp 18 05/01/17 16:00 BP 125/73 05/01/17 16:00 Pulse Ox 92 L 05/01/17 16:00 Intake & Output 05/01/17 05/01/17 05/02/17 06:59 18:59 06:59 Intake Total 480 Balance 480 Weight 123.4 kg Intake: Oral 480 Other: Voiding Method Bedside Commode Bedside Commode # Voids 2 2 - Exam 56-year-old female has obesity her shortness of breath and cough have markedly improved Dentition somewhat poor. HEENT: Anicteric conjunctiva are pink and moist nasal mucosa grossly intact without significant lesions, there is no thrush. Neck: The neck is supple without significant lymphadenopathy or thyromegaly. Lungs: There is symmetrical bilateral air entry. The coarse crackles and wheezes have resolved. No dullness or egophony is noted. Heart: Regular rate and rhythm with an audible S1-S2, no S3 soft S4. There is no significant murmur click or rub, PMI was nondisplaced. Abdomen: Obese, Positive bowel sounds soft and nontender without palpable masses or organomegaly. There was no guarding or rebound. Extremities: The upper extremities have excellent pulses they are symmetric, no significant petechiae or telangiectasia. No splinter hemorrhages were noted. The lower extremities are free from significant edema. The peripheral pulses were 2+ and symmetric. Neuro: Awake alert oriented to person place and time. There are no acute new gross focal sensory motor deficits. - Labs CBC & Chem 7: 05/01/17 07:29 05/01/17 07:29 Labs: Abnormal Lab Results - Last 24 Hours (Table) 05/01/17 05/01/17 Range/Units 07: 07: Hgb 11.2 L (11.4-16.0) gm/dL RDW 16.0 H (11.5-15.5) % BUN 32 H (7-17) mg/dL AST 54 H (14-36) U/L Alkaline Phosphatase 133 H (38-126) U/L Total Protein 5.7 L (6.3-8.2) g/dL Albumin 2.9 L (3.5-5.0) g/dL Microbiology - Last 24 Hours (Table) 04/29/17 14:40 Blood Culture - Preliminary Blood No Growth after 48 hours 04/29/17 13:20 Blood Culture - Preliminary Blood No Growth after 48 hours Laboratory Results WBC 7.7 k/uL (3.8-10.6) 05/01/17 07: RBC 3.95 m/uL (3.80-5.40) 05/01/17 07:29 Hgb 11.2 gm/dL (11.4-16.0) L 05/01/17 07: Hct 36.1 % (34.0-46.0) 05/01/17 07: MCV 91.5 fL (80.0-100.0) 05/01/17 07:29 MCH 28.3 pg (25.0-35.0) 05/01/17 07:29 MCHC 31.0 g/dL (31.0-37.0) 05/01/17 07:29 RDW 16.0 % (11.5-15.5) H 05/01/17 07:29 Plt Count 210 k/uL (150-450) 05/01/17 07:29 Neutrophils % 84 % 04/27/17 01:57 Lymphocytes % 10 % 04/27/17 01:57 Monocytes % 4 % 04/27/17 01:57 Eosinophils % 1 % 04/27/17 01:57 Basophils % 0 % 04/27/17 01:57 Neutrophils # 11.3 k/uL (1.3-7.7) H 04/27/17 01:57 Lymphocytes # 1.3 k/uL (1.0-4.8) 04/27/17 01:57 Monocytes # 0.5 k/uL (0-1.0) 04/27/17 01:57 Eosinophils # 0.1 k/uL (0-0.7) 04/27/17 01:57 Basophils # 0.1 k/uL (0-0.2) 04/27/17 01:57 Anisocytosis Slight 05/01/17 07:29 D-Dimer 3.59 mg/L FEU (<0.60) H 04/28/17 12:54 Sodium 142 mmol/L (137-145) 05/01/17 07:29 Potassium 4.1 mmol/L (3.5-5.1) 05/01/17 07:29 Chloride 103 mmol/L (98-107) 05/01/17 07:29 Carbon Dioxide 29 mmol/L (22-30) 05/01/17 07:29 Anion Gap 10 mmol/L 05/01/17 07:29 BUN 32 mg/dL (7-17) H 05/01/17 07:29 Creatinine 0.71 mg/dL (0.52-1.04) 05/01/17 07:29 Est GFR (MDRD) Af Amer >60 (>60 ml/min/1.73 sqM) 05/01/17 07:29 Est GFR (MDRD) Non-Af >60 (>60 ml/min/1.73 sqM) 05/01/17 07:29 Glucose 97 mg/dL (74-99) 05/01/17 07:29 POC Glucose (mg/dL) 118 mg/dL (75-99) H 04/29/17 13:45 POC Glu License And Permit Specialist ID Reji Alex 04/29/17 13:45 Plasma Lactic Acid Hero 1.5 mmol/L (0.7-2.0) 04/29/17 16:20 Calcium 8.7 mg/dL (8.4-10.2) 05/01/17 07:29 Total Bilirubin 0.7 mg/dL (0.2-1.3) 05/01/17 07:29 AST 54 U/L (14-36) H 05/01/17 07:29 ALT 48 U/L (9-52) 05/01/17 07:29 Alkaline Phosphatase 133 U/L (38-126) H 05/01/17 07:29 Total Creatine Kinase 101 U/L (30-135) 04/29/17 14:26 CK-MB (CK-2) 2.1 ng/mL (0.0-2.4) 04/29/17 14:26 CK-MB (CK-2) Rel Index 2.1 04/29/17 14:26 Troponin I 0.138 ng/mL (0.000-0.034) H* 04/30/17 03:10 NT-Pro-B Natriuret Pep 75327 pg/mL 04/29/17 07:06 Total Protein 5.7 g/dL (6.3-8.2) L 05/01/17 07:29 Albumin 2.9 g/dL (3.5-5.0) L 05/01/17 07:29 Amylase 44 U/L (30-110) 04/27/17 01:57 Lipase 100 U/L (23-300) 04/27/17 01:57 Urine Color Yellow 04/27/17 01:57 Urine Appearance Cloudy (Clear) H 04/27/17 01:57 Urine pH 5.5 (5.0-8.0) 04/27/17 01:57 Ur Specific [place] 1.023 (1.001-1.035) 04/27/17 01:57 Urine Protein Trace (Negative) H 04/27/17 01:57 Urine Glucose (UA) Negative (Negative) 04/27/17 01:57 Urine Ketones Negative (Negative) 04/27/17 01:57 Urine Blood Trace (Negative) H 04/27/17 01:57 Urine Nitrite Negative (Negative) 04/27/17 01:57 Urine Bilirubin Negative (Negative) 04/27/17 01:57 Urine Urobilinogen <2.0 mg/dL (<2.0) 04/27/17 01:57 Ur Leukocyte Esterase Large (Negative) H 04/27/17 01:57 Urine RBC 2 /hpf (0-5) 04/27/17 01:57 Urine WBC 18 /hpf (0-5) H 04/27/17 01:57 Ur Squamous Epith Cells 5 /hpf (0-4) H 04/27/17 01:57 Urine Bacteria Rare /hpf (None) H 04/27/17 01:57 Urine Mucus Few /hpf (None) H 04/27/17 01:57 Microbiology 04/29/17 14:40 Blood Blood Culture - Preliminary No Growth after 48 hours 04/29/17 13:20 Blood Blood Culture - Preliminary No Growth after 48 hours 04/27/17 01:57 Urine,Clean Catch Urine Culture - Final Escherichia coli Assessment and Plan (1) E. coli UTI Narrative/Plan: 56-year-old female presents emergency center with significant abdominal pain. Due to the severe pain she had a computed tomography scan performed. There was no evidence of any acute intra-abdominal pathology and has been seen by surgery. However there was evidence of abnormal masses onto the right kidney. She's been seen by urology and there were plans for outpatient evaluation and surgical intervention for potential renal cell carcinoma. The patient has been seen by gynecology and will have ongoing follow-up that she has had for the complex ovarian mass. Patient does have evidence of a Escherichia coli urinary tract infection. It is davsi susceptible continue Rocephin for now. No need to escalate to Zosyn. When she is ready for discharge oral cefuroxime to complete 7 days of therapy is indicated. The patient however is developed significant shortness of breath. Her chest x- ray reviewed personally. There is evidence of extensive volume overload. A dose of Lasix is given. She did have evidence of a doubling of her creatinine showing acute renal failure. Her Toradol was discontinued. The renal function has now normalized. She's had an extensive diuresis and feels considerably better. As related on consult the pulmonary symptoms are on the basis of the volume overload, I do not believe that she has pneumonia. Antibiotic therapy will be to complete the treatment of her urinary tract infection that was etiology of a febrile illness at admission. Status: Acute (2) Volume overload Status: Acute (3) Renal mass, right Status: Acute
[2017-05-01] MEDS ORDERED: ATORVASTATIN 20 MG TAB PO SCH (21:00)
[2017-05-01] MEDS: LISINOPRIL-HCTZ 20-12.5 MG 1 EACH TAB PO SCH (21:27)
[2017-05-01 22:15] VITALS: RESP 16
[2017-05-02] MEDS: IPRATROPIUM-ALBUTEROL 3 ML NEB INHALATION SCH ×2 (07:06→11:26)
--- NOTE | 2017-05-02 07:33 | XR ---
EXAMINATION TYPE: XR chest 2V DATE OF EXAM: 05/02/2017 HISTORY: chf. REFERENCE: Previous study dated 05/01/2017. FINDINGS: There is improved aeration of both lungs. There continues to be bibasilar airspace disease, worse on the right than the left. No significant pleural fluid is seen. Heart size is upper limits o f normal. IMPRESSION: IMPROVED AERATION, BOTH LUNG BASES.
[2017-05-02] MEDS: FUROSEMIDE 10 MG/ML 4 ML VIAL IV SCH (09:22)
[2017-05-02] MEDS: CYCLOBENZAPRINE 10 MG TAB PO SCH (09:22)
[2017-05-02] MEDS: ASPIRIN 81 MG CHEW PO SCH (09:23)
[2017-05-02] MEDS: LISINOPRIL-HCTZ 20-12.5 MG 1 EACH TAB PO SCH (09:23)
[2017-05-02] MEDS: ATENOLOL 50 MG TAB PO SCH (09:23)
[2017-05-02] MEDS ORDERED: DOCUSATE 100 MG CAP PO SCH (09:45)
[2017-05-02 11:19] VITALS: PULSE 76; TEMP 97.5
[2017-05-02 11:51] VITALS: BP 131/80
--- NOTE | 2017-05-02 12:19 | P.PN ---
Subjective This is a 56-year-old female who I'm asked to see because of low saturations and impending respiratory distress/difficulty. She asked he was admitted on April 27. She apparently came left lower quadrant abdominal pain. It been going on for 2 days prior to admission. The pain was sharp. It did not radiate. She apparently had some nausea. Did not have any vomiting. There is no fever chills chest pain shortness breath at that time constipation diarrhea blood in her stools or anything like that. There is no urinary complaints. The patient was evaluated for possible appendicitis. Really not thought to have appendicitis by the numerous consultants who saw her. I was called yesterday patient. 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 Chest x-ray apparently showed a either a combination of heart failure and/or pneumonia. Her BMP was very elevated as a diagnosis of sleep apnea and uses CPAP for that. Lifelong nonsmoker. Not thought to have chronic lung disease. The patient currently is resting comfortably. No shortness of breath. I gave BiPAP orders but I don't believe she ever went on BiPAP. Currently just on nasal O2. Denies any complaints at this time. No coughing no wheezing. No phlegm production. She was given diuretics. She was also started on some IV Rocephin by Dr. Arias and infectious disease. On 05/01/2017, the patient is resting comfortably in bed. She is able to sit up on a chair. She was taken off her oxygen. Her pulse ox is above 90% on room air. She is not having any major respiratory difficulties. No cough sputum production. No chest that is so wheezing. Her follow-up chest x-ray from today shows interval improvement in the diffuse bilateral pulmonary infiltrates. I am suspecting that the patient had an underlying pulmonary edema. Echocardiogram was ordered and results are still pending for now. Meanwhile, no fever, no chills, no night sweats, no change in mental status, no other complaints otherwise. On 05/02/2017 the patient is being seen in follow-up. She has no specific complaints. She is laying comfortably in bed. No major respiratory distress. Subsequent chest x-ray that was done shows further improvement in the bilateral pulmonary infiltrates were discussed earlier. No nausea. No vomiting. No chest pain. No abdominal pain. Her white cell count is not elevated. Function is stable at creatinine of 0.7. The patient was seen again in follow- up by infectious disease. There were also thinking that this is a pneumonia and it's probably fluid overload knowing that it responded nicely to diuretics. Antibiotic therapy will be continued for an underlying urine checked infection. She is afebrile for now. Objective - Vital Signs Vital signs: Vital Signs Temp 97.5 F L 05/02/17 08:00 Pulse 76 05/02/17 11:54 Resp 16 05/02/17 11:54 BP 131/80 05/02/17 11:50 Pulse Ox 95 05/02/17 11:50 Intake & Output 05/01/17 05/02/17 05/02/17 18:59 06:59 18:59 Intake Total 480 10 120 Balance 480 10 120 Weight 122.5 kg Intake: IV 10 flush 10 Oral 480 120 Other: Voiding Method Bedside Commode Toilet Toilet # Voids 2 1 1 - Exam Head exam was generally normal. There was no scleral icterus or corneal arcus. Mucous membranes were moist. Neck is short and supple and there is significant crowding of posterior pharynx. There is a little neck masses. Lungs sounds are diminished in lung bases along with some limited bibasilar crackles.Cardiac exam revealed the PMI to be normally situated and sized. The rhythm was regular and no extrasystoles were noted during several minutes of auscultation. The first and second heart sounds were normal and physiologic splitting of the second heart sound was noted. There were no murmurs, rubs, clicks, or gallops. Abdomen is obese soft nontender. No organomegaly. No direct tenderness or rebound tenderness or guarding. Extremities reveal + edema and there is no cyanosis or clubbing at this point. Neurologically the patient is awake and alert. - Labs CBC & Chem 7: 05/01/17 07:29 05/01/17 07:29 Labs: Microbiology - Last 24 Hours (Table) 04/29/17 14:40 Blood Culture - Preliminary Blood No Growth after 48 hours 04/29/17 13:20 Blood Culture - Preliminary Blood No Growth after 48 hours Assessment and Plan Plan: Assessment 1 Acute hypoxic respiratory failure/shortness of breath secondary to pulmonary edema. Clinically the patient is improved. The patient is responding nicely to diuretics. Chest x-ray shows improvement in the beta pulmonary infiltrates compared to yesterday. On 05/02/2017 the patient's x-ray shows further improvement in the volume status and the pulmonary physicians are discussed earlier. The patient is on Lasix 40 mg IV on a daily basis. Echocardiogram shows a preserved LV function. Clinically improved and the patient is currently off oxygen on room air. 2 obesity, BMI of 41.4 3 obstructive sleep apnea 4 hypertension 5 diverticular disease 6 E. coli urine checked infection 7 a 3 cm exophytic lesion of the anterior right kidney, favor solid lesion such as renal cell carcinoma rather than a hemorrhagic or proteinaceous cyst. 8 left adnexal cystic lesion measuring 5.4 x 4.5 cm in size. Possible complex/ hemorrhagic ovarian cyst/tubo-ovarian abscess/cystic neoplasm of the left ovary 9 troponin leak Plan Clinically the patient is improving. Continue diuretics. Echocardiogram was noted. The patient is a preserved LV with an ejection fraction of 55-60%. No valvular disease. There is borderline concentric left ventricular hypertrophy/ hypertensive heart disease. Her blood pressure is good control for now. We'll continue to follow. Discharge planning is in progress.
--- NOTE | 2017-05-02 14:31 | P.PN ---
Subjective Principal diagnosis: Shortness of breath This is a 56-year-old female who presented to the hospital with symptoms of abdominal discomfort which had been going on for 2-3 days prior to admission. Pain was sharp in nature according to the patient. She did have associated nausea with no vomiting. No fever or chills. Patient became hypoxic and short of breath and for this reason a cardiology consultation was requested. CT of the abdomen and pelvis was performed which revealed a 3 cm lesion in the anterior right kidney area. Also revealed mild dilated dictation of the appendix suggesting early appendicitis. There was also a cystic lesion found in the left adnexal area. Transvaginal ultrasound was also performed which revealed left adnexal mass, neoplastic etiology should be considered. Echocardiogram with Doppler study was performed which revealed normal left ventricular systolic function. BNP level 13,400/troponins 0.16, 0.15, 0.13. Patient was diuresed with IV Lasix. It appears that she did get significant amounts of IV fluids on admission here. This morning she states that her breathing feels much better than it has over the past few days. Chest x-ray from today revealed slight interval improvement in the diffuse bilateral airspace disease. Patient continues to be on daily IV Lasix which we will continue. We will start the patient on a baby aspirin along with the statin. Patient needs continued investigation and follow-up regarding the abnormal abdominal findings. We will continue IV Lasix until tomorrow. She will have a follow-up with in the office post discharge, outpatient cardiac testing can be performed at that time. 05/02/2017 Patient seen and examined this morning, no complaints. Blood pressure 130/80, heart rate in the 70s. Objective - Vital Signs Vital signs: Vital Signs Temp 97.5 F L 05/02/17 08:00 Pulse 76 05/02/17 11:54 Resp 16 05/02/17 11:54 BP 131/80 05/02/17 11:50 Pulse Ox 95 05/02/17 11:50 Intake & Output 05/01/17 05/02/17 05/02/17 18:59 06:59 18:59 Intake Total 480 10 360 Balance 480 10 360 Weight 122.5 kg Intake: IV 10 flush 10 Oral 480 360 Other: Voiding Method Bedside Commode Toilet Toilet # Voids 2 1 1 - Exam PHYSICAL EXAMINATION: HEENT: Head is atraumatic, normocephalic. Pupils equal, round. Neck is supple. There is no elevated jugular venous pressure. HEART EXAMINATION: Heart S1, S2 normal. No murmur or gallop heard. CHEST EXAMINATION: Reveal fine crackles to bilateral bases. ABDOMEN: Soft, nontender. Bowel sounds are heard. No organomegaly noted. EXTREMITIES: 2+ peripheral pulses with no evidence of peripheral edema and no calf tenderness noted. NEUROLOGIC patient is awake, alert and oriented -3. . - Labs CBC & Chem 7: 05/01/17 07:29 05/01/17 07:29 Labs: Microbiology - Last 24 Hours (Table) 04/29/17 14:40 Blood Culture - Preliminary Blood No Growth after 48 hours 04/29/17 13:20 Blood Culture - Preliminary Blood No Growth after 48 hours Assessment and Plan (1) Diastolic CHF, acute on chronic Status: Acute (2) Acute renal failure Status: Acute (3) Abdominal pain Status: Acute (4) Ovarian mass Status: Acute (5) Pickwickian syndrome Status: Acute (6) Pneumonia Status: Acute (7) Renal mass Status: Acute (8) Sleep apnea Status: Acute Plan: Cardiology's perspective, patient may be able to be discharged home today. We made a follow-up appointment for her to see Dr. Arroyo in the office post discharge. DNP note has been reviewed, I agree with a documented findings and plan of care. Patient was seen and examined.
--- NOTE | 2017-05-02 15:31 | P.DS ---
Providers Date of admission: 04/27/17 05:51 Expected date of discharge: 05/02/17 Attending physician: Kip Lucas Consults: 04/27/17 05:48 Consult Physician Stat Consulting Provider: Edu Arcos Consult Reason/Comments: Ovarian Mass Do you want consulting provider notified?: Yes Consult Physician Stat Consulting Provider: Emely Porter Consult Reason/Comments: Appendicitis Do you want consulting provider notified?: Already Contacted 04/27/17 05:53 Consult Physician Stat Consulting Provider: Elijah Mendez Consult Reason/Comments: Renal Mass Do you want consulting provider notified?: Yes 04/29/17 12:31 Consult Physician Routine Consulting Provider: Robbie Arias Consult Reason/Comments: sepsis Do you want consulting provider notified?: Yes 04/29/17 15:53 Consult Physician Routine Consulting Provider: [facility] Consult Reason/Comments: elevated troponins Do you want consulting provider notified?: Yes 04/29/17 15:59 Consult Physician Routine Consulting Provider: Lenin Triana Consult Reason/Comments: hypoxia Do you want consulting provider notified?: Yes Primary care physician: Lizbeth Goldstein Hospital Course: Final Diagnoses: Acute hypoxic respiratory failure, secondary to pulmonary edema, sleep apnea, doubt pneumonia per pulmonary. Acute Diastolic congestive heart failure, borderline concentric left ventricular hypertrophy/hypertensive heart disease. Left sided abdominal pain, sec to acute uti, ovarian cyst; pt had a history of it, need to consider increase in size, being followed by Dr. Arcos OP. Acute UTI with E. coli right sided renal exophytic mass, incidental find, further follow-up outpatient Acute renal failure, improving Acute delirium, acute metabolic encephalopathy, multifactorial related to hypoxia,resolved Hospital course: This is a 56 yr old with history of ovarian cyst, followed by Dr arcos, admitted with complaints of left sided abdominal pain,fevers, chills however denied urinary urgency, frequency, change in bowel habits. ct abdomen, multiple findings including fat stranding on the right lower abdomen, an ovarian cyst and a exophytic renal mass. Evaluated by multiple consults including SPA EXPERIENCE COORDINATOR, surgery, infectious disease, pulmonary, cardiology. Patient was evaluated for possible appendicitis by surgery, nonsurgical abdomen. Patient states it feels like muscular, as she had been doing some heavy lifting prior to admission. Pain improved with the addition of muscle relaxant. Respiratory status worsened, chest x-ray reported a combination of heart failure and/or pneumonia. D-dimer elevated,V/Q scan reported low probability of PE. Echo reported normal LV function, EF 55-60%. acute UTI with E. coli, maintained on Rocephin as per infectious disease. Maintained on Lasix IV push, nebulized bronchodilators. Respiratory status responded well to diuresing. Chest x-ray reported improved aeration bilateral lung bases. Oxygen weaned off. Significant clinical improvement. Cleared by consults for discharge. Patient is being discharged home in a stable condition with guarded prognosis. The impression and plan of care has been dictated as directed as a scribe. : I performed a H&P examination of this patient and discussed the same with the dictator. I agree with the dictator's note. Any additional findings/opinions/ etc. will be noted. Patient Condition at Discharge: Stable Plan - Discharge Summary New Discharge Prescriptions: New Cefuroxime Axetil [Ceftin] 500 mg PO BID #6 tab Atorvastatin [Lipitor] 20 mg PO HS #30 tab Cyclobenzaprine [Flexeril] 10 mg PO TID #20 tab Docusate [Colace] 100 mg PO BID #30 cap Continue Aspirin 81 mg PO DAILY Multivitamin/Iron/Folic Acid [Centrum Complete Multivit Tab] 1 tab PO DAILY Lisinopril/Hydrochlorothiazide [Lisinopril-Hctz 20-12.5 mg Tab] 1 tab PO BID Atenolol 50 mg PO DAILY Discharge Medication List Aspirin 81 mg PO DAILY 05/02/16 [History] Atenolol 50 mg PO DAILY 05/02/16 [History] Lisinopril/Hydrochlorothiazide [Lisinopril-Hctz 20-12.5 mg Tab] 1 tab PO BID [History] Multivitamin/Iron/Folic Acid [Centrum Complete Multivit Tab] 1 tab PO DAILY [History] Cefuroxime Axetil [Ceftin] 500 mg PO BID #6 tab 05/01/17 [Rx] Atorvastatin [Lipitor] 20 mg PO HS #30 tab 05/02/17 [Rx] Cyclobenzaprine [Flexeril] 10 mg PO TID #20 tab 05/02/17 [Rx] Docusate [Colace] 100 mg PO BID #30 cap 05/02/17 [Rx] Follow up Appointment(s)/Referral(s): Booker Wilson MD [STAFF PHYSICIAN] - 1 Week (office will call with an appoint ment) Lizbeth Goldstein MD [Primary Care Provider] - 3 Days Ambulatory/Diagnostic Orders: Complete Blood Count w/diff [LAB.AMB] Time Frame: 3 Days, Location: Determined By Patient Discharge Disposition: HOME SELF-CARE
== END 2017-05-02 14:15 | disposition home or self-care (01) | DRG 689 ==
LOC: EC 00:41 → 4MS4W 05:51 → 6SEL 04-29 16:56
PROVIDERS: ADMIT Hospitalist; ATTEND Hospitalist
DX: N39.0 Urinary tract infection, site not specified (principal); J96.01 Acute respiratory failure with hypoxia; G93.41 Metabolic encephalopathy; I50.31 Acute diastolic (congestive) heart failure; N17.9 Acute kidney failure, unspecified; E66.2 Morbid (severe) obesity with alveolar hypoventilation; B96.20 Unspecified Escherichia coli [E. coli] as the cause of diseases classified elsewhere; D41.01 Neoplasm of uncertain behavior of right kidney; E87.5 Hyperkalemia; N83.202 Unspecified ovarian cyst, left side; I11.0 Hypertensive heart disease with heart failure; R50.9 Fever, unspecified; R41.0 Disorientation, unspecified; N92.6 Irregular menstruation, unspecified; D72.829 Elevated white blood cell count, unspecified; R93.3 Abnormal findings on diagnostic imaging of other parts of digestive tract; K57.90 Diverticulosis of intestine, part unspecified, without perforation or abscess without bleeding; R11.0 Nausea; R94.31 Abnormal electrocardiogram [ECG] [EKG]; R74.8 Abnormal levels of other serum enzymes; Z90.49 Acquired absence of other specified parts of digestive tract; Z79.899 Other long term (current) drug therapy; Z79.82 Long term (current) use of aspirin; Z82.5 Family history of asthma and other chronic lower respiratory diseases; Z86.001 Personal history of in-situ neoplasm of cervix uteri; Z77.22 Contact with and (suspected) exposure to environmental tobacco smoke (acute) (chronic); Z78.0 Asymptomatic menopausal state; Z83.1 Family history of other infectious and parasitic diseases; Z83.79 Family history of other diseases of the digestive system
CPT/HCPCS: 36415; 71010; 71020; 74177; 76830; 78582; 80048; 80053; 81001; 82150; 82550; 82553; 83605; 83690; 83880; 84132; 84484; 85025; 85027; 85379; 87040; 87077; 87086; 87186; 93005; 93306; 93976; 94640; 94760; 96361; 96365; 96375; 99285

== ENCOUNTER → 2018-05-23 | Outpatient (CLI) | payer BC ==
--- NOTE | 2018-05-24 13:09 | MM ---
Reason for exam: screening (asymptomatic). Last mammogram was performed 1 year and 4 months ago. Physical Findings: A clinical breast exam by your physician is recommended on an annual basis and results should be correlated with mammographic findings. MG Screening Mammo w CAD Bilateral CC and MLO view(s) were taken. XCCL view(s) were taken of the right breast. Prior study comparison: January 26, 2017, bilateral MG screening mammo w CAD. January 11, 2016, bilateral MG screening mammo w CAD. There is chronic nodularity in the left breast. No significant changes when compared with prior studies. ASSESSMENT: Benign, BI-RAD 2 RECOMMENDATION: Routine screening mammogram of both breasts in 1 year.
== END | disposition home or self-care (01) ==
LOC: RADMAMWWP 07:01
PROVIDERS: ATTEND Obstetrics & Gynecology
DX: Z12.31 Encounter for screening mammogram for malignant neoplasm of breast (principal)
CPT/HCPCS: 77067

== ENCOUNTER → 2019-08-02 | Outpatient (CLI) | payer BC ==
[2019-08-02 06:47] LABS: African American GFR (CKD) >90 (>60 ml/min/1.73 sqM); Blood Urea Nitrogen 19 mg/dL (7-17); Non-African American GFR(CKD) 84 (>60 ml/min/1.73 sqM)
--- NOTE | 2019-08-02 08:19 | CT ---
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 FINDINGS: LUNG BASES-: No visible nodule. No infiltrate. LIVER/GB: The gallbladder surgically absent. Hepatic steatosis. No space occupying hepatic lesion. Biliary tree is of normal caliber. PANCREAS: No inflammation. No distinct mass. SPLEEN: No splenic enlargement. No lesion seen. ADRENALS: No nodule. No thickening. KIDNEYS/BLADDER: Postoperative changes right kidney noted. No evidence for recurrent or residual mas s. Small nonobstructing calculi seen bilaterally. No hydronephrosis. No nephrolithiasis. No distinc t renal mass. Urinary bladder grossly unremarkable. BOWEL: Normal appendix. Normal bowel caliber. No inflammation. LYMPH NODES: No greater than 1cm abdominal or pelvic lymph nodes are appreciated. AORTA: No significant abnormality. OSSEOUS STRUCTURES: No significant abnormality is seen. OTHER: No significant additional abnormality is seen. IMPRESSION: 1. Postoperative changes right kidney. No evidence for recurrent or residual mass. 2. Small nonobstructing renal calculi. 3. Hepatic steatosis.
== END | disposition home or self-care (01) ==
LOC: RADCTMAIN 06:00
PROVIDERS: ATTEND Urology
DX: K76.0 Fatty (change of) liver, not elsewhere classified (principal); N20.0 Calculus of kidney; C49.5 Malignant neoplasm of connective and soft tissue of pelvis; E11.9 Type 2 diabetes mellitus without complications; N28.9 Disorder of kidney and ureter, unspecified
CPT/HCPCS: 36415; 74170; 82565; 84520

== ENCOUNTER → 2019-08-13 | Outpatient (CLI) | payer BC ==
--- NOTE | 2019-08-15 09:55 | MM ---
Reason for exam: screening (asymptomatic). Last mammogram was performed 1 year and 3 months ago. Physical Findings: A clinical breast exam by your physician is recommended on an annual basis and results should be correlated with mammographic findings. MG Screening Mammo w CAD Bilateral CC and MLO view(s) were taken. Prior study comparison: May 23, 2018, bilateral MG screening mammo w CAD. January 26, 2017, bilateral MG screening mammo w CAD. There is a stable left upper outer quadrant middle depth mass. Benign appearing bilateral calcifications. No suspicious abnormality. No significant changes when compared with prior studies. ASSESSMENT: Benign, BI-RAD 2 RECOMMENDATION: Routine screening mammogram of both breasts in 1 year.
== END | disposition home or self-care (01) ==
LOC: RADMAMWWP 06:55
PROVIDERS: ATTEND Obstetrics & Gynecology
DX: Z12.31 Encounter for screening mammogram for malignant neoplasm of breast (principal)
CPT/HCPCS: 77067

== ENCOUNTER → 2020-06-01 | Outpatient (CLI) | payer BC ==
[2020-06-01 15:00] LABS: Basophils % (A) 0 %; Eosinophils # (A) 0.3 k/uL (0-0.7); Eosinophils % (A) 4 %; HCT 40.7 % (34.0-46.0); HGB 13.4 gm/dL (11.4-16.0); Lymphocytes % (A) 38 %; MCV 87.9 fL (80.0-100.0); Mean Platelet Volume 7.3; Monocytes # (A) 0.4 k/uL (0-1.0); Monocytes % (A) 4 %; Neutrophils % (A) 51 %; Platelet Count 228 k/uL (150-450); RBC 4.63 m/uL (3.80-5.40); RDW 13.9 % (11.5-15.5); WBC 7.9 k/uL (3.8-10.6)
== END | disposition home or self-care (01) ==
LOC: LABPAT 11:35
PROVIDERS: ATTEND Obstetrics & Gynecology
DX: Z01.818 Encounter for other preprocedural examination (principal); N93.8 Other specified abnormal uterine and vaginal bleeding; I10 Essential (primary) hypertension
CPT/HCPCS: 36415; 85025; 93005

== ENCOUNTER → 2020-06-09 | Day surgery (SDC) | payer BC ==
[2020-06-03 09:04] VITALS: BMI 41.0
--- NOTE | 2020-06-08 20:00 | HP ---
HISTORY AND PHYSICAL DATE OF SURGERY: 06/09/2020 HISTORY OF PRESENT ILLNESS: The patient is a 60-year-old 3, para 3-0-0-3, who presented to the office with an ongoing history of dysfunctional uterine bleeding which has been ongoing for years. Her bleeding pattern had appeared to be normal periods with just a delayed onset of menopause. More recently she has had significantly more irregular bleeding, including spotting, and underwent pelvic ultrasound which demonstrated a fairly significantly thickened endometrial stripe. She was brought to the office, where attempt at endometrial biopsy in the office was undertaken but could not be completed secondary to significant cervical stenosis after having had a cold knife conization for cervical abnormalities in the past. As a result, she was counseled regarding hysteroscopy with D&C with the intention of pretreating with misoprostol or Cytotec in order to soften the cervix. PAST MEDICAL HISTORY: Significant for carcinoma in situ of the cervix in 2002, at which time she had a cold knife cone as noted above. She additionally has a history of hypertension and a benign kidney tumor. PAST SURGICAL HISTORY: Significant for cholecystectomy in 1992, cold knife cone in 2002 and right partial nephrectomy secondary to renal cell cancer in 2016. There were no apparent anesthetic concerns. OBSTETRICAL HISTORY: 3, para 3-0-0-3 with three term vaginal deliveries without complications. Method of contraception has been vasectomy. GYNECOLOGIC HISTORY: Unremarkable except as noted in the history of present illness. Again, she did have carcinoma in situ of the cervix found at cold knife cone. FAMILY HISTORY: Noncontributory. SOCIAL HISTORY: The patient is and is now retired. She is a nonsmoker and reports occasional alcohol. No other social concerns. CURRENT MEDICATIONS: Current medications include only aspirin daily. ALLERGIES: NO KNOWN DRUG ALLERGIES. REVIEW OF SYSTEMS: Confined to history of present illness. PHYSICAL EXAMINATION: Vital signs are stable. The patient is afebrile. In general, this is a well- developed, mildly obese white female in no acute distress. Her heart has a regular rhythm and rate without murmur. Her lungs are clear to auscultation bilaterally in all vitale. Her abdomen is nondistended, has normoactive bowel sounds, is soft, nontender, without any palpable masses, hepatosplenomegaly or hernias. Her extremities are without any cyanosis, clubbing or edema and are nontender to palpation bilaterally. Pelvic examination demonstrates a 4-week mid plane, mobile, normal-shaped uterus with normal adnexa bilaterally. The organs are very high in the pelvis, making examination somewhat difficult. ASSESSMENT AND PLAN: Dysfunctional uterine bleeding with cervical stenosis. Given the increased endometrial stripe thickness, we have opted to proceed with diagnostic hysteroscopy with dilatation and curettage for both diagnostic and hopefully therapeutic purposes. She will be pretreated with Cytotec 200 mcg intravaginally the night before. The risks and complications of the procedure have been thoroughly discussed, including the risks for bleeding, bleeding requiring transfusion, infection, injury to local structures to specifically include the risk for uterine perforation and subsequent Asherman syndrome. She has understood all this and agreed to proceed. We are scheduled for the procedures, including diagnostic hysteroscopy with dilation and curettage, on the morning of June 09, 2020. MMODL / IJN: [id number] /
[~2020-06-09] MED LIST: Acetaminophen-Codeine 300-30mg TAB PO PRN; DEXAMETHASONE SOD PHOSPHATE 10 MG/ML 1 ML VIAL IV ONE; HYDROmorphone 0.5 MG/0.5 ML SYRINGE IVP PRN; IBUPROFEN 600 MG TAB PO PRN; KETOROLAC 15 MG/ML 1 ML VIAL IVP PRN; KETOROLAC 15 MG/ML 1 ML VIAL ONE; LACTATED RINGERS 1,000 ML IV SCH; LIDOCAINE 1% (10MG/ML) FOR IV START INTRADERMA ONE; LIDOCAINE 1% INJ 10MG/ML (20 ML MDV) ONE; METOCLOPRAMIDE 5 MG/ML 2 ML VIAL IVP PRN; MIDAZOLAM 2 MG/2 ML VIAL IV PRN; MIDAZOLAM 2 MG/2 ML VIAL ONE; ONDANSETRON 4 MG/2 ML VIAL IVP ONE; ONDANSETRON 4 MG/2 ML VIAL IVP PRN; PROPOFOL 10 MG/ML 20 ML VIAL IV ONE; Pre Op ABX Message 1 EACH MISC MISCELLANE ONE; SCOPOLAMINE 1.5MG/72HR PATCH TRANSDERM ONE; SIMETHICONE 80 MG CHEWABLE PO PRN; SORBITOL 3% IRRIGATION 3,000 ML IRRIGATION ONE; diphenhydrAMINE 50 MG/ML 1 ML VIAL IVP PRN; fentaNYL (PF) 50 MCG/ML 2 ML AMP ONE
--- NOTE | 2020-06-09 11:44 | P.OP ---
Date of Procedure: 06/09/20 Preoperative Diagnosis: 1. Dysfunctional uterine bleeding #2. Cervical stenosis Postoperative Diagnosis: Same plus #3. Probable endometrial polyp Procedure(s) Performed: #1. Diagnostic hysteroscopy #2. Dilation and curettage #3. Endometrial polypectomy Anesthesia: other (Gen. by LMA) Surgeon: Edu Arcos Estimated Blood Loss (ml): 5 IV fluids (ml): 30 Urine output (ml): 500 Pathology: other (Endometrial curettings and probable polyp) Condition: stable Disposition: PACU Operative Findings: Preoperative pelvic examination demonstrated a roughly 4 week uterus very high in the pelvis which was essentially normal in shape of the exam is limited secondary to patient habitus. The adnexa are nonpalpable without any apparent masses bilaterally. Intraoperatively, the cervix does appear to have fairly moderate scarring and is fairly flat at the apex of the vagina. Uterus sounded to approximately 7-8 cm. Serial dilation was carried out without difficulty. Using the hysteroscope, the bilateral tubal ostia were seen and there was some shaggy endometrium but a fairly obvious and prominent posterior wall endometrial polyp was present. It did appear to be removed entirely with the polyp forceps. The endometrial texture was otherwise typical and gritty and the small to medium amount of tissue was removed. The patient is a poor candidate for vaginal approach to hysterectomy. Description of Procedure: Patient was prepped and draped in usual fashion after general anesthesia was administered by the anesthesiologist. A weighted speculum was placed and the bladder drained of approximately 30 mL of clear herlinda urine. The anterior lip of the cervix was grasped with a single-tooth tenaculum and uterus sounded to approximate 7-8 cm as noted above. Serial dilation was carried out to admit the diagnostic hysteroscope which was placed into the uterine cavity and the endometrial cavity distended with sorbitol. The findings are as noted above with some shaggy endometrium but a very obvious reasonably large polyp was noted along the posterior wall of the fundus. The scope was then set aside after adequate the documentation had been carried out in favor of a medium sharp curette which was used to thoroughly and circumferentially curet in vitro cavity onto a Telfa placed in the vagina. There was a small to medium amount tissue returned. This was then removed and set aside in favor of a polyp forceps which was utilized to ultimately find and remove the endometrial polyp completely by the appearance of the polyp. Further attempts with polyp forceps were made and there was no further tissue returned. All instrumentation was then removed and there was no ongoing bleeding from the cervix nor from the tenaculum site. Estimated blood loss was approximate 5 mL or less. There were no complications. All sponge, instrument, and needle counts were correct. The patient tolerated the procedure well and proceeded to the recovery room in stable condition.
[2020-06-09 11:46] VITALS: TEMP 98
[2020-06-09 12:18] VITALS: RESP 17
[2020-06-09 12:29] VITALS: BP 105/61; PULSE 66
== END | disposition home or self-care (01) ==
LOC: OR 09:26
PROVIDERS: ATTEND Obstetrics & Gynecology
DX: N84.0 Polyp of corpus uteri (principal); N88.2 Stricture and stenosis of cervix uteri; I10 Essential (primary) hypertension; G47.33 Obstructive sleep apnea (adult) (pediatric); E66.9 Obesity, unspecified; Z79.82 Long term (current) use of aspirin; Z79.899 Other long term (current) drug therapy; Z85.528 Personal history of other malignant neoplasm of kidney; Z90.5 Acquired absence of kidney; Z90.49 Acquired absence of other specified parts of digestive tract; Z98.890 Other specified postprocedural states; Z68.41 Body mass index [BMI] 40.0-44.9, adult
CPT/HCPCS: 58558; 88305; J2250; J1100; J2405; J2001; J3010; J1885; J2704

== ENCOUNTER → 2020-08-11 | Outpatient (CLI) | payer BC ==
[2020-08-11 17:19] LABS: African American GFR (CKD) >90 (>60 ml/min/1.73 sqM); Blood Urea Nitrogen 19 mg/dL (7-17); Non-African American GFR(CKD) >90 (>60 ml/min/1.73 sqM)
--- NOTE | 2020-08-11 22:16 | CT ---
EXAMINATION TYPE: CT abdomen wo/w con DATE OF EXAM: 08/11/2020 COMPARISON: 08/02/2019. HISTORY: Follow up for renal cancer, hx of partial right nephrectomy. CT DLP: 2694.3 mGycm Automated exposure control for dose reduction was used. TECHNIQUE: Helical acquisition of images was performed from the lung bases through the top of iliac crest to include entire abdomen. CONTRAST: Performed with Oral Contrast and without and with IV Contrast, patient injected with 100ml mL of Isov ue 300. FINDINGS: LUNG BASES: No significant abnormality is appreciated. LIVER/GB: No acute abnormality is appreciated. Hepatic steatosis and cholecystectomy noted. PANCREAS: No significant abnormality is seen. SPLEEN: No significant abnormality is seen. ADRENALS: No significant abnormality is seen. KIDNEYS: Stable post surgical changes related to partial right nephrectomy involving the anterior low er pole. No evidence of abnormal enhancing lesion or fluid collection. No bilateral hydronephrosis. S table bilateral nonobstructing renal calculi, one in each kidney measuring up to 5 mm. BOWEL: No significant abnormality of the partially imaged bowel. LYMPH NODES: No significant abnormality is seen. OSSEOUS STRUCTURES: No significant abnormality is seen. FREE AIR: No free air is visualized. OTHER: None. IMPRESSION: NO ACUTE ABNORMALITY. STABLE PARTIAL RIGHT NEPHRECTOMY WITHOUT EVIDENCE OF RECURRENT OR METASTATIC DISEASE.
== END | disposition home or self-care (01) ==
LOC: RADCTMAIN 16:27
PROVIDERS: ATTEND Internal Medicine
DX: C65.9 Malignant neoplasm of unspecified renal pelvis (principal); Z90.5 Acquired absence of kidney
CPT/HCPCS: 82565; 84520; 74170; 36415; Q9967

== ENCOUNTER → 2020-08-20 | Outpatient (CLI) | payer BC ==
--- NOTE | 2020-08-21 14:59 | MM ---
Reason for exam: screening (asymptomatic). Last mammogram was performed 1 year ago. Physical Findings: A clinical breast exam by your physician is recommended on an annual basis and results should be correlated with mammographic findings. MG Screening Mammo w CAD Bilateral CC and MLO view(s) were taken. Prior study comparison: August 13, 2019, bilateral MG screening mammo w CAD. May 23, 2018, bilateral MG screening mammo w CAD. There are scattered fibroglandular densities. There is chronic nodularity in the left breast. No significant changes when compared with prior studies. ASSESSMENT: Benign, BI-RAD 2 RECOMMENDATION: Routine screening mammogram of both breasts in 1 year.
== END | disposition home or self-care (01) ==
LOC: RADMAMWWP 09:46
PROVIDERS: ATTEND Obstetrics & Gynecology
DX: Z12.31 Encounter for screening mammogram for malignant neoplasm of breast (principal)
CPT/HCPCS: 77067

== ENCOUNTER → 2021-07-14 | Outpatient (CLI) | payer BC ==
--- NOTE | 2021-07-14 09:42 | US ---
EXAMINATION TYPE: US kidneys/renal and bladder DATE OF EXAM: 07/14/2021 COMPARISON: CT CLINICAL HISTORY: C64.9 MALIGNANT NEOPLASM KIDNEY. H/O right renal lesion removed / follow-up study EXAM MEASUREMENTS: Right Kidney: 12.7 x 6.4 x 5.6 cm Left Kidney: 12.9 x 5.7 x 6.1 cm Right Kidney: Appeared wnl Left Kidney: Appeared wnl Bladder: wnl Bilateral Jets seen: Yes There is no evidence for hydronephrosis at this point in time. No nephrolithiasis is seen. No luz s are identified. The urinary bladder is anechoic. Bilateral ureteral jets are seen. IMPRESSION: No abnormality
== END | disposition home or self-care (01) ==
LOC: RADCTMAIN 07:20
PROVIDERS: ATTEND Urology
DX: C64.9 Malignant neoplasm of unspecified kidney, except renal pelvis (principal)
CPT/HCPCS: 76770

== ENCOUNTER → 2021-08-23 | Outpatient (CLI) | payer BC ==
--- NOTE | 2021-08-23 10:00 | MM ---
Reason for exam: screening (asymptomatic). Last mammogram was performed 1 year ago. History: Patient is postmenopausal. Physical Findings: A clinical breast exam by your physician is recommended on an annual basis and results should be correlated with mammographic findings. MG Screening Mammo w CAD Bilateral CC and MLO view(s) were taken. Prior study comparison: August 20, 2020, bilateral MG screening mammo w CAD. August 13, 2019, bilateral MG screening mammo w CAD. There are scattered fibroglandular densities. There are benign appearing round calcifications bilaterally. There is chronic nodularity bilaterally, upper outer quadrant, greater in the left breast. There is no discrete abnormality. ASSESSMENT: Benign, BI-RAD 2 RECOMMENDATION: Routine screening mammogram of both breasts in 1 year.
== END | disposition home or self-care (01) ==
LOC: RADMAMWWP 08:22
PROVIDERS: ATTEND Obstetrics & Gynecology
DX: Z12.31 Encounter for screening mammogram for malignant neoplasm of breast (principal); Z78.0 Asymptomatic menopausal state
CPT/HCPCS: 77067

== ENCOUNTER → 2022-06-08 | Outpatient (CLI) | payer BC ==
[2022-06-08 14:28] LABS: Basophils # (A) 0.08 X 10*3/uL (0.00-0.10); Basophils % (A) 1.1 %; Eosinophils # (A) 0.29 X 10*3/uL (0.04-0.35); Eosinophils % (A) 3.8 %; Immature Grans, Automated 0.1 %; Lymphocytes # (A) 2.31 X 10*3/uL (0.90-5.00); Lymphocytes % (A) 30.5 %; MCH 28.6 pg (27.0-32.0); MCHC 31.7 g/dL (32.0-37.0); MCV 90.3 fL (80.0-97.0); Mean Platelet Volume 10.3 fL (9.5-12.2); Monocytes % (A) 5.3 %; NRBC Per 100 WBC 0 /100 WBCS (0.0-0.0); Neutrophils # (A) 4.49 X 10*3/uL (1.80-7.70); Neutrophils % (A) 59.2 %; Platelet Count 232 X 10*3/uL (140-440); RBC 4.54 X 10*6/uL (4.10-5.20); RDW 13.2 % (11.5-14.5); WBC 7.58 X 10*3/uL (4.50-10.00)
== END | disposition home or self-care (01) ==
LOC: LABPAT 07:05
PROVIDERS: ATTEND Obstetrics & Gynecology
DX: Z01.818 Encounter for other preprocedural examination (principal); I10 Essential (primary) hypertension; N95.0 Postmenopausal bleeding; R93.89 Abnormal findings on diagnostic imaging of other specified body structures
CPT/HCPCS: 85025; 93005

== ENCOUNTER → 2022-08-10 | Outpatient (CLI) | payer BC ==
--- NOTE | 2022-08-10 08:28 | CT ---
EXAMINATION TYPE: CT abdomen wo/w con DATE OF EXAM: 08/10/2022 COMPARISON: CT abdomen August 11, 2020 and older studies from 2017 HISTORY: Follow up for neoplasm of right kidney. CT DLP: 2612.3 mGycm Automated exposure control for dose reduction was used. TECHNIQUE: Helical acquisition of images was performed from the lung bases through the top of iliac crest to include entire abdomen. CONTRAST: Performed with Oral Contrast and without and with IV Contrast, patient injected with 70ml mL of Isovu e 300. FINDINGS: LUNG BASES: Prominent calcification at level of the mitral valve is redemonstrated. LIVER/GB: Liver remains diffusely low dense on noncontrast imaging consistent with fatty infiltrative hepatocellular disease. Cholecystectomy clips are redemonstrated. PANCREAS: No significant abnormality is seen. SPLEEN: No significant abnormality is seen. ADRENALS: No significant abnormality is seen. KIDNEYS: Stable posttreatment changes to the anterior aspect mid to lower pole right kidney with oval circumscribed fat dense area having linear soft tissue axial image 43 in the retroperitoneum unchang ed from last 2 CTs. There is symmetric cortical medullary uptake and excretion redemonstrated without hydronephrosis or new concerning solid or cystic renal mass. Stable 7 mm nonobstructing calculus low er pole left kidney axial image 46 series 3. BOWEL: Diverticula are redemonstrated scattered throughout the colon. No CT evidence for acute diver ticulitis. LYMPH NODES: No significant abnormality is seen. OSSEOUS STRUCTURES: No significant abnormality is seen. FREE AIR: No free air is visualized. OTHER: Mild calcified plaque of the aorta extends into branch vessels IMPRESSION: Posttreatment change to the right kidney redemonstrated. No new suspicious mass or adenop athy noted. No significant change from most recent CT.
== END | disposition home or self-care (01) ==
LOC: RADCTMAIN 07:11
PROVIDERS: ATTEND Urology
DX: C64.9 Malignant neoplasm of unspecified kidney, except renal pelvis (principal); Z98.890 Other specified postprocedural states
CPT/HCPCS: 74170; Q9967

== ENCOUNTER → 2022-09-01 | Outpatient (CLI) | payer BC ==
--- NOTE | 2022-09-02 09:06 | MM ---
Reason for Exam: Screening (asymptomatic). Last screening mammogram was performed 12 month(s) ago. Patient History: Menarche at age 12. First Full-Term at age 23. Postmenopausal. Maternal aunt had breast cancer at or over age 50. Risk Values: Concetta 5 year model risk: 1.4%. NCI Lifetime model risk: 7.2%. Prior Study Comparison: 01/26/2017 Bilateral Screening Mammogram, [facility]. 05/23/2018 Bilateral Screening Mammogram, [facility]. 08/13/2019 Bilateral Screening Mammogram, [facility]. 08/20/2020 Bilateral Screening Mammogram, [facility]. 08/23/2021 Bilateral Screening Mammogram, [facility]. Tissue Density: There are scattered fibroglandular densities. Findings: Analyzed By CAD. There is no suspicious group of microcalcifications or new suspicious mass in either breast. Benign-appearing round calcifications bilaterally. Chronic nodularity within the left breast. No significant change from prior exams. Overall Assessment: Benign, BI-RAD 2 Management: Screening Mammogram of both breasts in 1 year. A clinical breast exam by your physician is recommended on an annual basis and results should be correlated with mammographic findings. Electronically signed and approved by: Jesus Marr D.O.
== END | disposition home or self-care (01) ==
LOC: RADMAMWWP 08:17
PROVIDERS: ATTEND Obstetrics & Gynecology
DX: Z12.31 Encounter for screening mammogram for malignant neoplasm of breast (principal); Z78.0 Asymptomatic menopausal state; Z80.3 Family history of malignant neoplasm of breast
CPT/HCPCS: 77067

== ENCOUNTER → 2023-10-30 | Outpatient (CLI) | payer BC ==
--- NOTE | 2023-10-30 14:56 | MM ---
Reason for Exam: Screening (asymptomatic). Last mammogram was performed 1 year(s) and 2 month(s) ago. Patient History: Menarche at age 12. First Full-Term at age 23. Postmenopausal. Maternal aunt had breast cancer at or over age 50. Risk Values: Concetta 5 year model risk: 1.5%. NCI Lifetime model risk: 7.0%. Prior Study Comparison: 08/20/2020 Bilateral Screening Mammogram, [facility]. 08/23/2021 Bilateral Screening Mammogram, [facility]. 09/01/2022 Bilateral MG screening mammo w CAD, [facility]. Tissue Density: There are scattered fibroglandular densities. Findings: Analyzed By CAD. The pattern is symmetrical. No significant interval change is evident. Scattered benign punctate calcifications are present bilaterally. No suspicious groups of microcalcifications, spiculated or lobular masses, architectural distortion or other secondary signs of malignancy are mammographically apparent. Overall Assessment: Benign, BI-RAD 2 Management: Screening Mammogram of both breasts in 1 year. A negative mammogram report should not preclude additional follow up of suspicious palpable abnormalities. Patient should continue monthly self breast exam. A clinical breast exam by your physician is recommended on an annual basis and results should be correlated with mammographic findings. Electronically signed and approved by: Figueroa Lopez D.O. Radiologis
--- NOTE | 2023-10-30 17:03 | BD ---
EXAMINATION TYPE: Axial Bone Density DATE OF EXAM: 10/30/2023 CLINICAL HISTORY: 63 years old Female. ICD-10 CODE: Z78.0 ASYMPTOMATIC MENOPAUSAL STATE Height: 66 Weight: 275.3 FRAX RISK QUESTIONS: Alcohol (3 or more units per day): no Family History (Parent hip fracture): no Glucocorticoids (More than 3mos): no (Ex: prednisone, prednisolone, methylprednisolone, dexamethasone, and hydrocortisone). History of Fracture in Adulthood: yes Secondary Osteoporosis: 1. Type 1 Diabetes: no 2. Hyperthyroidism: no 3. Menopause before 45: no 4. Malnutrition: no 5. Chronic liver disease: no Rheumatoid Arthritis: no Current Tobacco Use: no RISK FACTORS HISTORY OF: Surgery to Spine/Hip(right/left)/Wrist (right/left): no EXAM MEASUREMENTS: Bone mineral densitometry was performed using the [employer] System. Bone mineral density as measured about the Lumbar spine is: ----- L1-L4(G/cm2): 1.479 T Score Values are as follows: ----- L1: 2.8 ----- L2: 2.7 ----- L3: 2.1 ----- L4: 2.3 ----- L1-L4: 2.5 Z Score Values are as follows: ----- L1: 2.9 ----- L2: 2.8 ----- L3: 2.2 ----- L4: 2.5 ----- L1-L4: 2.6 Bone mineral density : baseline Bone mineral density about the R hip (g/cm2): 1.316 Bone mineral density about the L hip (g/cm2): 1.330 T Score values are as follows: -----R Neck: 0.6 -----L Neck: 1.1 -----R Total: 2.4 -----L Total: 2.6 Z Score values are as follows: -----R Neck: 1.1 -----L Neck: 1.6 -----R Total: 2.6 -----L Total: 2.7 Bone mineral density : baseline FRAX%s: The graph provided illustrates a 8.6% chance for a major osteoporotic fx and a 0.1% chance fo r the hips probability for fx in 10 years time. IMPRESSION: Normal (Values between +1 and -1 indicate normal bone mass). Consider repeating this study in 5 year s or sooner if there is some new clinical indication. NOTE: T-SCORE=SD OF THE YOUNG ADULT MEAN.
== END | disposition home or self-care (01) ==
LOC: RADMAMWWP 07:04
PROVIDERS: ATTEND Obstetrics & Gynecology
DX: Z12.31 Encounter for screening mammogram for malignant neoplasm of breast (principal); Z78.0 Asymptomatic menopausal state; Z80.3 Family history of malignant neoplasm of breast
CPT/HCPCS: 77067; 77080

== ENCOUNTER → 2024-09-02 | Outpatient (CLI) | payer BC ==
--- NOTE | 2024-09-02 23:56 | US ---
EXAMINATION TYPE: US kidneys/renal and bladder DATE OF EXAM: 09/02/2024 COMPARISON: NONE CLINICAL INDICATION: Female, 64 years old with history of Z85.528 HX OF MALIGNANT NEOPLASM KIDNEY; Hx of right kidney CA area remove x 9 years old. TECHNIQUE: Grayscale imaging of the bilateral kidneys and urinary bladder: FINDINGS: EXAM MEASUREMENTS: Right Kidney: 13.1 x 6.0 x 5.1 cm Left Kidney: 13.1 x 6.1 x 5.6 cm Right Kidney: No hydronephrosis or masses seen Left Kidney: No hydronephrosis or masses seen Bladder: Anechoic Bilateral Jets seen: yes IMPRESSION: No suspicious renal abnormality by ultrasound. [facility] Last, , 09/02/2024 11:54 PM
== END | disposition home or self-care (01) ==
LOC: RADUSWWP 14:02
PROVIDERS: ATTEND Urology
DX: Z85.528 Personal history of other malignant neoplasm of kidney (principal)
CPT/HCPCS: 76770

== ENCOUNTER → 2024-10-24 | Outpatient (CLI) | payer BC ==
[2024-10-24 15:30] LABS: HCT 40.5 % (37.2-46.3); HGB 13.2 g/dL (12.0-15.0); MCH 28.7 pg (27.0-32.0); MCHC 32.6 g/dL (32.0-37.0); Mean Platelet Volume 9.7 FL (9.5-12.2); NRBC Per 100 WBC 0 X 10*3/uL (0.00-0.01); Platelet Count 240 X 10*3/uL (140-440); RDW 14.4 % (11.5-14.5); WBC 8.64 X 10*3/uL (4.50-10.00)
[2024-10-24 15:31] LABS: Basophils # (A) 0.07 X 10*3/uL (0.00-0.10); Basophils % (A) 0.8 %; Eosinophils # (A) 0.25 X 10*3/uL (0.04-0.35); Eosinophils % (A) 2.9 %; Lymphocytes # (A) 2.66 X 10*3/uL (0.90-5.00); Lymphocytes % (A) 30.8 %; Monocytes # (A) 0.54 X 10*3/uL (0.20-1.00); Monocytes % (A) 6.3 %; Neutrophils # (A) 5.08 X 10*3/uL (1.80-7.70); Neutrophils % (A) 58.7 %
== END | disposition home or self-care (01) ==
LOC: RADMAMWWP 08:11
PROVIDERS: ATTEND Obstetrics & Gynecology
DX: I10 Essential (primary) hypertension (principal); N95.0 Postmenopausal bleeding
CPT/HCPCS: 85025; 93005

== ENCOUNTER 2024-10-31 07:44 | Day surgery (SDC) | payer BC ==
[2024-10-28 13:08] VITALS: BMI 43.0
[~2024-10-31 07:44] MED LIST changes: -Acetaminophen-Codeine 300-30mg TAB PO PRN; -DEXAMETHASONE SOD PHOSPHATE 10 MG/ML 1 ML VIAL IV ONE; -IBUPROFEN 600 MG TAB PO PRN; -KETOROLAC 15 MG/ML 1 ML VIAL IVP PRN; -KETOROLAC 15 MG/ML 1 ML VIAL ONE; -LIDOCAINE 1% (10MG/ML) FOR IV START INTRADERMA ONE; +LIDOCAINE 1% (10MG/ML) FOR IV START INTRADERMA PRN; -LIDOCAINE 1% INJ 10MG/ML (20 ML MDV) ONE; -METOCLOPRAMIDE 5 MG/ML 2 ML VIAL IVP PRN; -MIDAZOLAM 2 MG/2 ML VIAL ONE; -ONDANSETRON 4 MG/2 ML VIAL IVP ONE; -ONDANSETRON 4 MG/2 ML VIAL IVP PRN; -PROPOFOL 10 MG/ML 20 ML VIAL IV ONE; -SCOPOLAMINE 1.5MG/72HR PATCH TRANSDERM ONE; -SIMETHICONE 80 MG CHEWABLE PO PRN; -SORBITOL 3% IRRIGATION 3,000 ML IRRIGATION ONE; -diphenhydrAMINE 50 MG/ML 1 ML VIAL IVP PRN; +fentaNYL (PF) 50 MCG/ML 2 ML AMP IVP PRN; -fentaNYL (PF) 50 MCG/ML 2 ML AMP ONE
[2024-10-31] MEDS: IV FLUID CONTINUATION 1,000 ML IV ONE (08:30)
[2024-10-31] MEDS: ONDANSETRON 4 MG/2 ML VIAL IVP ONE (08:41)
[2024-10-31] MEDS: DEXAMETHASONE SOD PHOSPHATE 4 MG/ML 1 ML VIAL IV ONE (08:41)
[2024-10-31 09:02] LABS: African American GFR (CKD) >90 (>60 ml/min/1.73 sqM); Anion Gap 9 mmol/L; Blood Urea Nitrogen 17 mg/dL (7-17); Carbon Dioxide 29 mmol/L (22-30); Chloride 99 mmol/L (98-107); Glucose 144 mg/dL (74-99); Non-African American GFR(CKD) >90 (>60 ml/min/1.73 sqM); Potassium 4.4 mmol/L (3.5-5.1); Sodium 137 mmol/L (137-145)
[2024-10-31] MEDS ORDERED: fentaNYL (PF) 50 MCG/ML 2 ML AMP ONE (09:23)
[2024-10-31] MEDS ORDERED: MIDAZOLAM 2 MG/2 ML VIAL ONE (09:23)
[2024-10-31] MEDS ORDERED: ALBUTEROL HFA INHALER INHALATION ONE (09:23)
[2024-10-31] MEDS ORDERED: PROPOFOL 10 MG/ML 20 ML VIAL IV ONE (09:23)
[2024-10-31] MEDS ORDERED: LIDOCAINE 1% INJ 10MG/ML (20 ML MDV) ONE (09:23)
[2024-10-31] MEDS ORDERED: PHENYLEPHRINE 10 MG/ML VIAL ONE (09:23)
[2024-10-31] MEDS ORDERED: SUCCINYLCHOLINE CHLORIDE 200 MG/10 ML VIAL IV ONE (09:23)
[2024-10-31] MEDS ORDERED: diphenhydrAMINE 50 MG/ML 1 ML VIAL IVP PRN (09:58)
[2024-10-31] MEDS ORDERED: ONDANSETRON 4 MG/2 ML VIAL IVP PRN (09:58)
[2024-10-31] MEDS ORDERED: KETOROLAC 15 MG/ML 1 ML VIAL IVP PRN (09:58)
[2024-10-31] MEDS ORDERED: ACETAMINOPHEN TAB 325 MG TAB PO PRN (09:58)
[2024-10-31] MEDS ORDERED: SIMETHICONE 80 MG CHEWABLE PO PRN (09:58)
[2024-10-31] MEDS ORDERED: diphenhydrAMINE 25 MG CAP PO PRN (09:58)
[2024-10-31] MEDS ORDERED: METOCLOPRAMIDE 5 MG/ML 2 ML VIAL IVP PRN (09:58)
[2024-10-31] MEDS ORDERED: IBUPROFEN 600 MG TAB PO PRN (09:58)
[2024-10-31] MEDS ORDERED: LACTATED RINGERS 1,000 ML IV SCH (10:00)
[2024-10-31 10:04] VITALS: RESP 16; TEMP 97
--- NOTE | 2024-10-31 10:07 | P.OP ---
Date of Procedure: 10/31/24 Preoperative Diagnosis: #1. Postmenopausal bleeding Postoperative Diagnosis: Same plus #2. Endometrial polyps Procedure(s) Performed: #1. Diagnostic hysteroscopy #2. Endometrial polypectomy #3. Dilation and curettage Anesthesia: NIKUNJ Surgeon: Edu Arcos Estimated Blood Loss (ml): 5 IV fluids (ml): 500 Urine output (ml): 30 Pathology: other (Endometrial curettings with probable polyps) Condition: stable Disposition: PACU Operative Findings: Preoperative pelvic examination demonstrated roughly 4 to 5-week midplane normal uterus of the exam is limited by the patient's habitus. The adnexa are nonpalpable and without apparent masses bilaterally. Intraoperatively, there was a moderate amount of cervical stenosis which was broken down with the uterine sound. The uterus sounded to approximately 8 to 9 cm. Using the hysteroscope, the bilateral tubal ostia were seen and there were number of polypoid structures scattered throughout the endometrial cavity. Polypoid tissue was extracted using the polyp forceps. There was a mild to moderate amount of tissue removed with sharp curettage. The typical gritty texture was encountered throughout. The patient is a poor candidate for vaginal hysterectomy. She additionally may be a poor candidate for a da Jerome approach as we had a trial of approximately 10 to 15 degrees of Trendelenburg and she had significantly high peak airway pressures suggesting that she may not tolerate steep Trendelenburg. Description of Procedure: The patient was prepped and draped in usual fashion after general endotracheal anesthesia was administered by the anesthesiologist. A weighted speculum was placed and the anterior lip of the cervix was grasped with a single-tooth tenaculum. The bladder was drained of approximately 30 cc of clear herlinda urine. Initial attempts to dilate the cervix were unsuccessful secondary to stenosis. Steady and gentle pressure with a uterine sound ultimately broke down the external stenosis and uterus sounded to approximately 8 to 9 cm. Serial dilation was carried out to admit the diagnostic hysteroscope. The uterine cavity was distended with sorbitol through the diagnostic hysteroscope and the findings are as noted above. The bilateral tubal ostia were seen and there were number of polypoid structure scattered throughout the entire uterine cavity. After adequate hysteroscopy was completed, the scope was set aside and a polyp forceps introduced. Several polypoid structures were removed with the polyp forceps. The forceps was then set aside in favor of a medium sharp curette which was utilized to thoroughly and circumferentially perform sharp curettage bringing tissue through the cervix and onto a Telfa placed in the vagina. There was a mild to moderate amount of tissue extracted. The typical gritty texture was encountered throughout. After adequate curettage been carried out, all instrumentation was removed. There was no ongoing bleeding from either the cervix or from the tenaculum site. Estimated blood loss for the case was 5 mL or less. There were no complications. All sponge, instrument, and needle counts were correct. The patient tolerated the procedure well and proceeded to the recovery room in stable condition.
[2024-10-31 11:22] VITALS: BP 125/78; PULSE 75
== END 2024-10-31 11:25 | disposition home or self-care (01) ==
LOC: OR 07:44
PROVIDERS: ATTEND Obstetrics & Gynecology
DX: N84.0 Polyp of corpus uteri (principal); N95.0 Postmenopausal bleeding; N83.209 Unspecified ovarian cyst, unspecified side; C64.9 Malignant neoplasm of unspecified kidney, except renal pelvis; I10 Essential (primary) hypertension; E78.5 Hyperlipidemia, unspecified; G47.33 Obstructive sleep apnea (adult) (pediatric); E66.01 Morbid (severe) obesity due to excess calories; Z68.41 Body mass index [BMI] 40.0-44.9, adult; Z01.419 Encounter for gynecological examination (general) (routine) without abnormal findings; Z99.89 Dependence on other enabling machines and devices; Z79.82 Long term (current) use of aspirin; Z79.02 Long term (current) use of antithrombotics/antiplatelets; Z79.899 Other long term (current) drug therapy
CPT/HCPCS: 58558; 88305; 80048; J2250; J0330; J1100; J2405; J2003; J3010; J2704; J2371